=== PATIENT | female | born 1965 | race Caucasian/White ===

== ENCOUNTER 2024-04-03 09:52 | Emergency (ER) | payer OTHER, SELFPAY ==
--- NOTE | ~2024-04-03 | XR_ITS ---
EXAMINATION: XR chest 2V DATE: 04/03/2024 10:21 INDICATION: Cough. TECHNIQUE: Frontal and lateral views of the chest were obtained. COMPARISON: Chest 2 views 07/26/2011 FINDINGS: There are airspace opacities at the lung bases. A calcified right lung nodule is consistent with old granulomatous disease. No pleural effusion or pneumothorax. The heart size is normal. Surgi jennifer clips in the right upper quadrant are likely from cholecystectomy. There is mild chronic anterior wedging of multiple vertebral bodies. IMPRESSION: 1. Airspace opacities at the lung bases, likely atelectasis. Reviewed, dictated and finalized at location A.
[2024-04-03 10:05] VITALS: BP 99/66; PULSE 73; RESP 18; TEMP 36.2; O2SAT 94
--- NOTE | 2024-04-03 10:05 | ED.URI ---
HPI - URI/Sore Throat General Chief Complaint: Upper Respiratory Infection Stated Complaint: Cold symptoms Source: patient Mode of arrival: ambulatory Limitations: no limitations History of Present Illness HPI Narrative: 58-year-old female presented for complaint cough progressing over the past 3 days. Cough is nonproductive; endorses it is causing hoarse voice and loss of voice this morning, sob with exertion, headache and fatigue. Denies wheezing, chest pain, heart racing, n/v/d/f/c. Took benzonatate and cough syrup and used albuterol inhaler at night. Related Data Home Medications Medication Instructions Recorded Confirmed albuterol (refill) 90 mcg inhalation 05/22/23 03/22/24 mcg/actuation aerosol inhaler calcium carbonate (Antacid Ultra 400 mg PO DAILY 05/22/23 03/22/24 Strength) cholecalciferol (vitamin D3) 125 125 mcg PO DAILY 05/22/23 03/22/24 mcg (5,000 unit) capsule magnesium chloride 70 mg 70 mg PO DAILY 05/22/23 03/22/24 (magnesium chloride) tablet,delayed release mecobalamin (vitamin B12) 1,000 1,000 mcg PO DAILY 05/22/23 03/22/24 mcg chewable tablet benzonatate 200 mg capsule 200 mg PO BID 04/03/24 04/03/24 Allergies Allergy/AdvReac Type Severity Reaction Status Date / Time aspirin AdvReac Unknown Nausea and Verified 04/03/24 10:05 Vomiting CODIENE AdvReac Intermediate NAUSEA Uncoded 04/03/24 10:05 VOMITING Review of Systems Review of Systems: CONSTITUTIONAL: Denies body aches, fever, chills, or sweats. EYES: Denies visual changes, redness, or discharge. ENT: Denies rhinorrhea, sore throat, or otalgia. CARDIOVASCULAR: Denies chest pain, palpitations, or edema. RESPIRATORY: Reports cough, sob, denies wheezing. GASTROINTESTINAL: Denies abdominal pain, nausea, vomiting, or diarrhea. SKIN: Denies rash, itching, or wounds. MUSCULOSKELETAL: Denies back pain, joint pain, or myalgia. NEUROLOGIC: reports headache All systems reviewed & are unremarkable except as noted in HPI and below PMFSH Past Medical History Medical History Acquired hypothyroidism Allergies Arthritis Asthma Family history of hypercoagulable state GERD (gastroesophageal reflux disease) Morbid obesity due to excess calories Obesity (BMI 30.0-34.9) Osteoarthritis, hand, primary localized Osteoporosis Thyroid disorder Surgical History Surgical History S/P complete hysterectomy 07/2002 Status post right knee replacement Family History Family History Father Hypertension Mother Family history of hypothyroidism Other Diabetes mellitus Family history of cardiovascular disease Family history of malignant neoplasm Social History Social History Smoking status: Former smoker Second hand tobacco smoke exposure: No Alcohol intake: never Substance use: never Substance use type: does not use Lack of Transportation: No Lack of Food: Never True Current Housing: I Have Housing Concerned About Future Housing: No Difficulty Paying Gas/Electric Bills: No Difficulty Paying for Meds: No Currently Unemployed: No Education: Associate Degree Difficulty w/ Childcare or Family Care: No Living arrangements: with family Occupation/Education: occupation Gender identity (if verbalized by the patient): Female Agree to blood products: Yes Comments At time of signature, I have reviewed and agree with nursing past medical, surgical, social and family history unless otherwise noted. Please see nursing chart for further information. There is no relevant family history pertinent to the presenting complaint Exam Narrative: GENERAL: mildly ill-appearing, in no acute distress. EYES: EOMI. No redness or drainage. Conjunctivae normal. ENT: Mucous membranes
[2024-04-03 10:06] VITALS: BP 99/66; PULSE 73; RESP 18; TEMP 36.2; O2SAT 94
[2024-04-03 10:46] LABS: EDINFLUASCREEN Negative; EDINFLUBSCREEN Negative; EDSTREPNEGPOS1 Presumptive Negative
== END 2024-04-03 10:58 | disposition home or self-care (01) ==
PROVIDERS: Emergency Provider Nurse Practitioner Family; PCP Internal Medicine
DX: J40 Bronchitis, not specified as acute or chronic (principal); Z20.822 Contact with and (suspected) exposure to COVID-19; Z87.891 Personal history of nicotine dependence; E03.9 Hypothyroidism, unspecified; M19.90 Unspecified osteoarthritis, unspecified site; J45.909 Unspecified asthma, uncomplicated; K21.9 Gastro-esophageal reflux disease without esophagitis; E66.01 Morbid (severe) obesity due to excess calories; Z68.38 Body mass index [BMI] 38.0-38.9, adult; M81.0 Age-related osteoporosis without current pathological fracture; Z96.651 Presence of right artificial knee joint
CPT/HCPCS: 71046; 87081; 87426; 87804; 87880; 99213; G0463

== ENCOUNTER 2024-07-13 15:06 | Emergency (ER) | payer OTHER, SELFPAY ==
[2024-07-13 15:19] VITALS: BP 121/72; PULSE 72; RESP 16; TEMP 36.4; O2SAT 98
--- NOTE | 2024-07-13 15:26 | ED.UPPEXIN ---
HPI - Extremity Injury (Upper) General Chief Complaint: Extremity Injury, Upper Stated Complaint: LT Arm Pain Time Seen by Provider: 07/13/24 15:26 Source: patient and RN notes reviewed Mode of arrival: ambulatory Limitations: no limitations History of Present Illness HPI narrative: 58-year-old female presents with concern for. She reports about an hour prior to arrival she slipped on a rug and fell hitting the side of her head, she also reports left wrist pain. Patient takes Eliquis. She reports dizziness after she hit her head, she denies nausea. MD complaint: injury to: left and wrist Related Data Home Medications Medication Instructions Recorded Confirmed calcium carbonate (Antacid Ultra 400 mg PO DAILY 05/22/23 07/13/24 Strength) cholecalciferol (vitamin D3) 125 125 mcg PO DAILY 05/22/23 07/13/24 mcg (5,000 unit) capsule magnesium chloride 70 mg 70 mg PO DAILY 05/22/23 07/13/24 (magnesium chloride) tablet,delayed release mecobalamin (vitamin B12) 1,000 1,000 mcg PO DAILY 05/22/23 07/13/24 mcg chewable tablet apixaban 5 mg tablet (Eliquis) 5 mg PO BID 06/01/24 07/13/24 spironolactone 25 mg tablet 25 mg PO DAILY 06/01/24 07/13/24 Allergies Allergy/AdvReac Type Severity Reaction Status Date / Time aspirin AdvReac Unknown Nausea and Verified 06/01/24 14:09 Vomiting CODIENE AdvReac Intermediate NAUSEA Uncoded 06/01/24 14:09 VOMITING Review of Systems Review of Systems: CONSTITUTIONAL: Denies malaise, chills, sweats, or fever. SKIN: Denies rash or itching, open skin, laceration, abrasion, redness, warmth, swelling. MUSCULOSKELETAL: Reports left wrist pain NEUROLOGIC: Denies numbness, weakness. Reports head injury and dizziness All systems reviewed & are unremarkable except as noted in HPI and below PMFSH Past Medical History Medical History (Updated 07/13/24 @ 15:41 by Cathie Kimble NP) Acquired hypothyroidism Afib Allergies Arthritis Asthma Atrial fibrillation with rapid ventricular response Family history of hypercoagulable state GERD (gastroesophageal reflux disease) Morbid obesity due to excess calories Obesity (BMI 30.0-34.9) Osteoarthritis, hand, primary localized Osteoporosis Thyroid disorder Surgical History Surgical History S/P complete hysterectomy 07/2002 Status post right knee replacement Family History Family History Father Hypertension Mother Family history of hypothyroidism Other Diabetes mellitus Family history of cardiovascular disease Family history of malignant neoplasm Social History Social History Smoking status: Former smoker Second hand tobacco smoke exposure: No Alcohol intake: never Substance use: never Substance use type: does not use Lack of Transportation: No Lack of Food: Never True Current Housing: I Have Housing Concerned About Future Housing: No Difficulty Paying Gas/Electric Bills: No Difficulty Paying for Meds: No Currently Unemployed: No Education: Associate Degree Difficulty w/ Childcare or Family Care: No Living arrangements: with family Occupation/Education: occupation Gender identity (if verbalized by the patient): Female Agree to blood products: Yes Comments At time of signature, agree with nursing past medical, surgical, social and family history. There is no relevant family history pertinent to the presenting complaint Exam Narrative: GENERAL: Well-appearing, well-nourished, and in no acute distress. HEAD: Normocephalic hematoma noted to the left parietal area EYES: PERRLA, conjunctivae clear, no nystagmus, EOMI NECK: Supple. CHEST: Speaks in full sentences. No respiratory distress. HEART: Regular rate and rhythm. Normal and equal peripheral pulses. EXTREMITIES: No gross deformity noted to the left up
[2024-07-13 15:28] VITALS: BP 121/72; PULSE 72; RESP 16; TEMP 36.4; O2SAT 98
== END 2024-07-13 15:48 | disposition short-term general hospital (02) ==
PROVIDERS: Emergency Provider Nurse Practitioner; PCP Internal Medicine
DX: S09.90XA Unspecified injury of head, initial encounter (principal); W18.09XA Striking against other object with subsequent fall, initial encounter; E03.9 Hypothyroidism, unspecified; I48.91 Unspecified atrial fibrillation; M19.90 Unspecified osteoarthritis, unspecified site; J45.909 Unspecified asthma, uncomplicated; E66.01 Morbid (severe) obesity due to excess calories; Z68.38 Body mass index [BMI] 38.0-38.9, adult; M81.0 Age-related osteoporosis without current pathological fracture; Z96.651 Presence of right artificial knee joint; Z87.891 Personal history of nicotine dependence
CPT/HCPCS: 99212; A4565; G0463

== ENCOUNTER 2025-02-07 08:17 | Emergency (ER) | payer OTHER, SELFPAY ==
--- NOTE | ~2025-02-07 | XR_ITS ---
XR chest 2V Ordering provider: Felix Arteaga APRN History: 59 years Female with . cough/sob x 1 week . Comparison: April 03, 2024 FINDINGS: MEDIASTINUM: The cardiac silhouette is not enlarged. LUNGS: No effusions or pneumothorax. Minimal opacification the left lower lobe is seen which may whitley gracia early pneumonia. Follow-up advised. Calcified granuloma seen in the posterior sulcus of the righ t lung unchanged OTHER: No free air under the diaphragm. Degenerative changes of the spine. Kyphosis. IMPRESSION: Minimal opacification in the left lung base medially which may indicate early pneumonia. Follow-up ad vised. Reviewed, dictated and finalized at location A. IMPRESSION: Minimal opacification in the left lung base medially which may indicate early p neumonia. Follow-up advised.
--- NOTE | 2025-02-07 08:23 | ED.URI ---
HPI - URI/Sore Throat General Chief Complaint: Upper Respiratory Infection Stated Complaint: sob,sore throat Time Seen by Provider: 02/07/25 08:22 Source: patient Mode of arrival: ambulatory Limitations: no limitations History of Present Illness HPI Narrative: Mercedes kessler a 59-year-old female patient presenting to the clinic today with complaints of shortness of breath, sore throat, cough, headache, nasal/sinus congestion. She reports cough is nonproductive but she is blowing out some yellow nasal discharge. History of asthma. States that it hurts in her left mid back to take a deep breath and when she coughs. No known fever chills. MD elicited complaint: sore throat and nasal congestion Related Data Home Medications ?Medication ?Instructions ?Recorded ?Confirmed ?Last Taken ?Type calcium carbonate (Antacid Ultra 400 mg PO DAILY 05/22/23 02/07/25 Unknown History Strength) cholecalciferol (vitamin D3) 125 125 mcg PO DAILY 05/22/23 02/07/25 Unknown History mcg (5,000 unit) capsule magnesium chloride 70 mg 70 mg PO DAILY 05/22/23 02/07/25 Unknown History (magnesium chloride) tablet,delayed release mecobalamin (vitamin B12) 1,000 1,000 mcg PO DAILY 05/22/23 02/07/25 Unknown History mcg chewable tablet omeprazole 20 mg capsule,delayed 20 mg PO DAILY 10/26/24 02/07/25 Unknown History release Allergies Allergy/AdvReac Type Severity Reaction Status Date / Time aspirin AdvReac Intermediate Nausea and Verified 02/07/25 08:24 Vomiting codeine AdvReac Intermediate Nausea and Verified 02/07/25 08:24 Vomiting Review of Systems Review of Systems: Pertinent positives per HPI. Patient denies any fever, chills, rash, visual changes, dizziness, chest pain, palpitations, nausea, vomiting, diarrhea, constipation, abdominal pain, or any urinary issues. [facility] Past Medical History Medical History Chronic anticoagulation Elbow fracture, left Atrial fibrillation with rapid ventricular response Afib Family history of hypercoagulable state Morbid obesity due to excess calories Acquired hypothyroidism Osteoarthritis, hand, primary localized Obesity (BMI 30.0-34.9) Thyroid disorder Osteoporosis GERD (gastroesophageal reflux disease) Arthritis Asthma Allergies Surgical History Surgical History S/P complete hysterectomy 07/2002 Status post right knee replacement Family History Family History Father Hypertension Mother Family history of hypothyroidism Other Diabetes mellitus Family history of cardiovascular disease Family history of malignant neoplasm Social History Social History Smoking status: Former smoker Second hand tobacco smoke exposure: No Alcohol intake: never Substance use: never Substance use type: does not use Lack of Transportation: No Lack of Food: Never True Current Housing: I Have Housing Concerned About Future Housing: No Difficulty Paying Gas/Electric Bills: No Difficulty Paying for Meds: No Currently Unemployed: No Education: Associate Degree Difficulty w/ Childcare or Family Care: No Living arrangements: with family Occupation/Education: occupation Gender identity (if verbalized by the patient): Female Agree to blood products: Yes Comments At the time of my signature, I reviewed and agree with the nursing past medical, surgical, social, and family history. There is no relevant family history pertinent to the patient complaint. Exam Narrative: General: Well-developed, morbidly obese, in no apparent distress Head: Normocephalic, atraumatic Eyes: Pupils equally round and reactive to light bilaterally, EOM intact, sclera and conjunctive clear, no discharge, lids normal Ears: TMs intact and congested, ear canals clear, no drainage, grossly hearing normal. Nose: Nares patent, green nasal discharge, moderate inflammation, maxillary sinus tenderness. Mouth: Oral pharynx without lesions or masses, good dentition, MMM. Neck: Supple, trachea midline, no enlargement of anterior or posterior cervical nodes, no thyroid masses or goiter palpable. Cardio: Irregular rate and rhythm, s1 and s2 normal, no murmur appreciated. Resp: Lung sounds diminished in the bases with some expiratory rhonchi, no rales, wheezing or rubs Course Course Emergency Course: Portions of this record may have been created with voice recognition software. Level of Care: Express Care Visit Vital Signs Vital signs: Vital Signs Temperature 36.3 C L 02/07/25 08:29 Pulse Rate 84 02/07/25 08:29 Respiratory Rate 18 02/07/25 08:29 Blood Pressure 102/69 02/07/25 08:29 Pulse Oximetry 96 02/07/25 08:29 Oxygen Delivery Room Air 02/07/25 08:29 Temperature 36.3 C L 02/07/25 08:29 Pulse Rate 84 02/07/25 08:29 Respiratory Rate 18 02/07/25 08:29 Blood Pressure 102/69 02/07/25 08:29 Pulse Oximetry 96 02/07/25 08:29 Oxygen Delivery Room Air 02/07/25 08:29 Vital signs reviewed MDM - URI/Sore Throat MDM Narrative Medical decision making narrative: At the time of visit patient is resting comfortably on the exam table. Patient appears to be nontoxic. SpO2 96% on room air. Heart rate is 84 apical-irregularly irregular. Denies any chest pain. States it hurt her back to take a deep breath and when she is coughing. Feels as though her lungs are on fire. Labs: Strep test was negative. Diagnostics: Chest x-ray shows lower lobe developing pneumonia. Plan: I suspect patient has early developing pneumonia. Prescription for albuterol inhaler, Augmentin, and azithromycin was sent to the pharmacy. Supportive measures were discussed with the patient and they voiced understanding discharge instructions and agrees to treatment plan. Return precautions reviewed Differential Diagnosis Differential diagnosis: Likely upper respiratory infection, otitis media, sinusitis, viral infection, bronchitis, influenza, pharyngitis and other (COVID) Lab Data Labs: Lab Results 02/07/25 Range/Units 08:50 POC Grp A Strep Screen Negative (Negative) Imaging Data Radiologist's impression: ITS Impressions Chest X-Ray 02/07/25 08:48 IMPRESSION: Minimal opacification in the left lung base medially which may indicate early pneumonia. Follow-up advised. Discharge Plan Discharge Clinical Impression: Left lower lobe pneumonia Qualifiers: Pneumonia type: due to unspecified organism Qualified Code(s): J18.9 - Pneumonia, unspecified organism Sinusitis Qualifiers: Sinusitis location: maxillary Chronicity: acute Recurrence: non-recurrent Qualified Code(s): J01.00 - Acute maxillary sinusitis, unspecified Patient Disposition: Home Condition: Stable Instructions: Antibiotic Form, Sinusitis (ED), Pneumonia (ED) Additional Instructions: Strep test was negative in the clinic today. Chest x-ray shows likely early pneumonia in the left lower lobe Take prescription medications only as prescribed-Augmentin, and azithromycin, and albuterol inhaler Increase fluids and stay well hydrated Tylenol/motrin for pain/fever Flonase and OTC antihistamines as directed Vicks vapor rub to open sinuses Sinus rinses for congestion Cepacol spray, cough drops, throat lozenges, warm tea with honey/lemon, gargle salt water to soothe throat BRAT diet for diarrhea Clear liquids x 24 hours then advance as tolerated for nausea/vomiting Go to the ED if you develop a worsening in your condition- high fever not controlled by Tylenol or Motrin, dehydration, weakness, lethargy, shortness of breath, or chest pain. Follow up with your PCP in 3-5 days if symptoms persist. Patient Language: Icelandic Prescriptions: New amoxicillin-pot clavulanate 875-125 mg tablet 1 tablet PO Q12H 7 Days Qty: 14 0RF azithromycin 250 mg tablet See Rx Instructions .ROUTE .COMPLEX Qty: 6 0RF Rx Instructions: For 250 mg dose pack: take 500 mg today (day 1), then 250 mg for 4 days (days 2-5) albuterol sulfate 90 mcg/actuation HFA aerosol inhaler 2 puff inhalation Q4-6H PRN (Reason: shortness of breath or wheezing) 30 Days Qty: 8.5 0RF No Action magnesium chloride 70 mg tablet,delayed release (DR/EC) 70 mg PO DAILY calcium carbonate [Antacid Ultra Strength] 400 mg calcium (1,000 mg) tablet,chewable 400 mg PO DAILY mecobalamin (vitamin B12) 1,000 mcg tablet,chewable 1,000 mcg PO DAILY cholecalciferol (vitamin D3) 125 mcg (5,000 unit) capsule 125 mcg PO DAILY omeprazole 20 mg capsule,delayed release(DR/EC) 20 mg PO DAILY Eliquis 5 mg tablet 5 mg PO BID Qty: 180 1RF levothyroxine 125 mcg tablet See Rx Instructions .ROUTE .COMPLEX Qty: 90 1RF Dose Instruction: TAKE ONE TABLET BY MOUTH EVERY DAY Rx Instructions: TAKE ONE TABLET BY MOUTH EVERY DAY Follow-up/Referrals: Mukesh Nayak DO [Primary Care Provider] - Time of Disposition: 08:56 Quality NIHSS Nursing Documentation ED NIHSS nursing documentation: reviewed/agree
--- OUTSIDE RECORDS SUMMARY | 2025-02-07 08:23 | XMS_ITS | Clinical Summary ---
Author Organization [facility] Address [address] [place] [id number] Care Team Providers Care Controls Technician Name Role Phone Unavailable Primary Care Provider Unavailabl e Social History Tobacco Use Types Packs/Day Years Used Date Smoking Tobacco: Never Assessed Comments Unknown Sex and Gender Information Value Date Recorded Sex Assigned at Not on file Legal Sex Female 8:54 PM CDT Gender Identity Not on file Sexual Orientation Not on file Last Filed Vital Signs Vital Sign Reading Time Taken Comments Blood Pressure 120/68 01/13/2015 9:01 AM CDT Pulse - - Temperature - - Respiratory Rate - - Oxygen Saturation - - Inhaled Oxygen Concentration - - Weight 112.5 kg (248 lb) 01/13/2015 9:01 AM CDT Height 172.7 cm (5' 8 ) 01/13/2015 9:01 AM CDT Body Mass Index 37.71 01/13/2015 9:01 AM CDT Plan of Treatment Health Maintenance Due Date Last Done Comments Cervical Cancer Screening Pa p Smear (Age 30 to 64) Every 3 Years 1963 Colorectal Cancer Screening Colonoscopy (10 Years) 1963 Annual Physical 12/08/1966 Hepatitis C 12/08/1981 DTaP, Tdap and Td Vaccines ( 1 - Tdap) 12/08/1982 Cervical Cancer Screening Pa p with HPV Testing (Age 30 to 64) Every 5 Years 12/08/1993 Cervical Cancer Screening with HPV 12/08/1993 Mammogram Screening 2003 Pneumococcal Vaccine: 50+ Ye ars (1 of 1 - PCV) 12/08/2013 Zoster Vaccines (1 of 2) 12/08/2013 COVID-19 Vaccine ( - 2023-2 5 season) 2024 RSV Immunization or 60+ Years (1 - 1-dose 75+ series) 12/08/2038 Meningococcal B Vaccine Aged Out No l onger eligible based on patient's age to complete this topic Meningococcal Vaccine Aged Out No pop jeanie eligible based on patient's age to complete this topic RSV Immunizations Under 20 Months Aged Out No longer eligible based on patient's age to complete this topic
--- OUTSIDE RECORDS SUMMARY | 2025-02-07 08:23 | XMS_ITS | Encounter Summary ---
Author Organization [facility] Care Team Providers Care Health Workers Name Role Phone Andra Castro MD Primary Care Provider + Mariana Hill MD Primary Care Provi kurt Andra Castro MD Primary Care Provider + Andra Castro MD Primary Care Provider + Charly Faith MD Unavailable [phone] Mukesh Nayak DO Primary Care Provider [phone] Encounter Details Date Type Department Care Team (Latest Contact Info) Description 05/01/2018 Orders Only [facility] ProviderChary MD [address] [place], [place] [id number] Social History Tobacco Use Types Packs/Day Years Used Date Smoking Tobacco: Never Smokeless Tobacco: Never Alcohol Use Standard Drinks/Week Comments No 0 (1 standard drink = 0.6 oz pur e alcohol) Comments Unknown Sex and Gender Information Value Date Recorded Sex Assigned at Not on file 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 us Historical Provider [facility] HOWIE ORTIZ Final Result documented in this encounter Visit Diagnoses Not on filedocumented in this encounter Additional Health Concerns Infection Onset Date Last Indicated Resolved Time COVID: Suspected 12/16/2021 12/16/2021 12/16/2021 11:00 AM CDT COVID: Suspected 12/16/2021 12/16/2021 12/17/2021 3:06 AM CDT COVID: Suspected 12/16/2021 12/16/2021 12/17/2021 7:23 PM CDT COVID: Suspected 06/12/2022 06/12/2022 06/12/2022 11:10 AM CDT COVID: Suspected 07/27/2023 07/27/2023 07/27/2023 12:30 PM CDT COVID: Suspected 05/25/2024 05/25/2024 05/25/2024 5:04 AM CDT documented as of this encounter Care Teams Health Workers Relationship Specialty Start Date End Date Andra Castro MD [address] [place] [address] PCP - General 04/22/11 12/27/18 Mariana Hill MD [facility] [address] [place] [id number] PCP - General 12/28/18 12/29/18 Andra Castro MD [address] [place] [address] PCP - General 12/30/18 01/03/19 Andra Castro MD [address] [place] [address] PCP - General 01/04/19 01/12/19 Mukesh Nayak DO [address] [facility] [address] [place] [address] PCP - General Internal Medicine 06/27/23 Charly Faith MD [address] [facility] [address] [place] [address] Consulting Physician Orthopedic Surgery 05/08/20 documented as of this encounter
--- OUTSIDE RECORDS SUMMARY | 2025-02-07 08:23 | XMS_ITS | Clinical Summary ---
Author Organization [address] Address [address] [place] [address] Care Team Providers Care Assistant Professor Of History Name Role Phone Charly Faith MD Unavailable [phone] Mukesh Nayak DO Primary Care Provider [phone] Allergies Active Allergy Reactions Criticality Noted Date Comments Aspirin Stomach upset Low 01/14/2019 nausea/vomiting Stomach/GI Upset Bansal Pepper Extract Angioedema High 05/25/2024 Codeine Nausea only,Stomach upset Low 01/14/2019 Finger tingles Stomach/GI Upset Medications acetaminophen (TYLENOL ORAL) Take 1,000 mg by mouth every 6 (six) hours as needed Active calcium citrate 250 mg calcium tablet tablet Take 1 tablet (250 mg total) by mouth 2 (two) times a day Active cyanocobalamin, vitamin B-12, 5,000 mcg tablet, sublingual Place 1 tablet under the tongue daily 1 drop daily Active cholecalciferol (VITAMIN D-3) 5,000 unit tablet Take 1 tablet (5,000 Units total) by mouth daily Active syringe-needle,karyn hanson 3 mL 25 gauge x 1 syringeIndicatio ns:B12 deficiency 1 Syringe every 30 (thirty) days 3 each 2 Active Additional Information Patient not taking.Reported on 05/25/2024 albuterol HFA (ProAir HFA) 90 mcg/actuation inhalerIndicatio ns:Wheezing Inhale 2 puffs every 4 (four) hours as needed for wheezing or shortness of breath 8.5 g 3 Active levothyroxine (SYNTHROID) 125 mcg tablet Take 1 tablet (125 mcg total) by mouth slip laster before breakfast 4 Active lansoprazole (PREVACID) 30 mg capsule Take 1 capsule (30 mg total) by mouth daily as needed Active apixaban (ELIQUIS) 5 mg tabletIndication s:atrial fibrillation Take 1 tablet (5 mg total) by mouth every 12 (twelve) hours 60 tablet 2 4 Active dapagliflozin propanediol (Farxiga) 5 mg tabletIndication s:Heart Failure Take 2 tablets (10 mg total) by mouth daily 60 tablet 2 4 Active spironolactone (ALDACTONE) 25 mg tablet Take 1 tablet (25 mg total) by mouth daily 30 tablet 2 4 05/27/20 25 Active amiodarone (PACERONE) 400 mg tablet Take 1 tablet (400 mg total) by mouth 2 (two) times a day for 14 days 28 tablet 4 Active amiodarone (PACERONE) 200 mg tablet Take 1 tablet (200 mg total) by mouth 2 (two) times a day 120 tablet 4 Active amiodarone (PACERONE) 200 mg tablet Take 1 tablet (200 mg total) by mouth daily 30 tablet 4 Active HYDROcodone-acet aminophen (NORCO) 5-325 mg per tabletIndication s:Pain Take 1 tablet by mouth every 6 (six) hours as needed for pain 8 tablet 4 Active Active Problems Problem Noted Date Diagnosed Date Atrial fibrillation with rapid ventricular respo nse 05/25/2024 Assessment & Plan (08/31/2024 11:55 AM [employer]): Chronic, stable. Single episode of rapid AF. No recurrence. Recommend observation OFF AADs. If recurrent, AF ablation should be considered. Also encouraged repeat sleep study and treatment of VITO if present. [id number] = 1(female sex). Long-term anticoagulation likely not indicated. Will reevaluate at next visit. --Continue apixaban 5 mg BID for now. Anticipate stopping next visit. --Sleep study as arranged --Cardiology referral for management of HFpEF --F/u 6 months to reevaluate AF burden Obstructive sleep apnea 03/11/2024 Assessment & Plan (03/11/2024 1:56 PM CDT): Past history of severe obstructive sleep apnea treated with CPAP. Gastric bypass in 2008. Lost over 100 lb but has gained some of her weight back. Interested in repeat polysomnography. Currently denies snoring, apneas, sleep attacks. No other signs or symptoms to suggest narcolepsy, restless leg syndrome, REM behavior disorder, parasomnia, movement disorder, circadian rhythm abnormality etcetera. Type 3 home sleep study seems reasonable. Body mass index likely would prevent treatment with hypoglossal nerve stimulation. Discussed other treatment options including surgery, mandibular advancement device. Supporter effort at the weight loss. Has gained back some of her weight following gastric bypass. A 10% reduction can lower the apnea-hypopnea index by 25%. Reviewed the relationship between sleep disorder breathing and cardiovascular health. Pernicious anemia 05/16/2022 Assessment & Plan (05/16/2022 2:25 PM CDT): Chronic Case reviewed with her director radio Will have her start vitamin B12 injections Will recheck in May Vitamin D deficiency 05/16/2022 Assessment & Plan (05/16/2022 1:14 PM CDT): Chronic, now on replacement Will recheck in May Call for questions or concerns OA (osteoarthritis) 04/20/2021 Assessment & Plan (04/20/2021 12:26 PM CDT): Previously following with Rheumatology, encouraged to follow with orthopedics Continue supportive care Call for questions or concerns Osteoarthritis of right knee 05/08/2020 Assessment & Plan (04/20/2021 12:26 PM CDT): Continue to follow with orthopedic Adjustment disorder with mixed anxiety and depre ssed mood 12/03/2019 Overview (01/07/2020): Patient reiterated no suicidal thoughts at this time; contact 911 and go to the ER if becomes suicidal Will increase cymbalta to 30 mg daily Continue supportive care for her mood If mood worsens or changes, please contact the office Anything emergent, to the er Assessment & Plan (04/20/2021 9:49 AM CDT): She is off medication We discussed restarting something- she does want to hold off Think about a therapist Work on healthy changes for her mood Follow up in the next couple months, but sooner if her mood worsens Any dangerous thoughts to the er Assessment & Plan (01/07/2020 11:49 AM CDT): Patient reiterated no suicidal thoughts at this time; contact 911 and go to the ER if becomes suicidal Will increase cymbalta to 30 mg daily Continue supportive care for her mood If mood worsens or changes, please contact the office Anything emergent, to the er Well adult exam 09/10/2019 Overview (04/20/2021): Encouraged a healthy diet, and regular physical activity to her level Wear sun screen, seat belts No texting/drinking and driving Health Maintenance: Last PAP: s/p hysterectomy for non-cancerous reasons Last mammogram: ordered Last colonoscopy: 06/2016-due this year Last Tdap: check records Last pneumonia/Prevnar: @63 Last Shingrix: encouraged Last Flu: encouraged Last COVID- up to date Assessment & Plan (04/20/2021 9:40 AM CDT): Encouraged a healthy diet, and regular physical activity to her level Wear sun screen, seat belts No texting/drinking and driving Health Maintenance: Last PAP: s/p hysterectomy for non-cancerous reasons Last mammogram: ordered Last colonoscopy: 06/2016-due this year Last Tdap: check records Last pneumonia/Prevnar: @63 Last Shingrix: encouraged Last Flu: encouraged Last COVID- up to date Assessment & Plan (09/10/2019 10:20 AM [employer]): Work on healthy low carb diet Healthy activity for 30 minutes daily Wear sun screen, seat belts No texting/drinking and driving Health Maintenance: Last PAP: NA Last mammogram: ordered Last DEXA: NA Last colonoscopy: 06/2016 Last Tdap: encouraged Last pneumonia/Prevnar: encouraged Last Shingrix: encouraged Last Flu: declined : Asthma 09/10/2019 Assessment & Plan (04/20/2021 9:44 AM CDT): Asymptomatic Continue to monitor her symptoms Class 3 severe obesity due t o excess calories without serious comorbidity with body mass index (BMI) of 40.0 to 44.9 in adult 07/26/2019 Assessment & Plan (03/21/2023 11:49 AM CDT): BMI Follow-up includes: continue working on healthy changes . Assessment & Plan (01/22/2023 10:24 AM CDT): BMI Follow-up includes: nutrition counseling. Assessment & Plan (04/20/2021 9:45 AM CDT): BMI Follow-up includes: nutrition counseling. Assessment & Plan (09/10/2019 10:25 AM [employer]): BMI Follow-up includes: nutrition counseling. Assessment & Plan (07/26/2019 11:11 AM CDT): BMI Follow-up includes: nutrition counseling. History of gastric bypass 07/10/2018 Esophageal dysphagia 07/10/2018 Assessment & Plan (04/20/2021 12:25 PM CDT): Stable Continue current regimen Continue to follow with GI Assessment & Plan (11/19/2019 10:13 AM [employer]): Work up under way Continue to follow with GI Call for questions or concerns Acquired hypothyroidism 04/10/2018 Assessment & Plan (05/16/2022 1:58 PM CDT): Chronic, stable Spoke to patient's director radio Continue current regimen Will place referral to endocrine at [facility] Labs ordered Assessment & Plan (04/20/2021 9:42 AM CDT): Labs ordered Assessment & Plan (12/03/2019 12:03 PM [employer]): Thyroid peroxidase antibody slightly elevated, otherwise normal Continue current regimen for now Consider recheck in 6 months Assessment & Plan (11/19/2019 10:21 AM [employer]): TSH normal Further labs ordered Abnormal result of cardiovascular function study 02/12/2014 Overview (01/02/2017): Abnormal cardiovascular function study Hypotension 02/12/2014 Overview (01/03/2017): Hypotension Pseudotumor cerebri syndrome 09/29/2003 Assessment & Plan (04/20/2021 12:28 PM CDT): We discussed the issue, consider referral to Neurology for any concerns or follow-up Will review at next visit as well Osteoarthritis of left knee Assessment & Plan (04/20/2021 12:26 PM CDT): Continue to follow with orthopedics GERD (gastroesophageal reflux disease) Assessment & Plan (04/20/2021 12:26 PM CDT): Stable Continue current regimen Call for questions or concerns Assessment & Plan (11/19/2019 10:13 AM [employer]): Continue to follow with GI Continue current regimen for now Call for questions or concerns Resolved Problems Problem Noted Date Diagnosed Date Resolved Date Pain, abdominal, RLQ 12/30/2019 021 Assessment & Plan (12/30/2019 1:49 PM CDT): 06/[address] scan Last food at 0930 Further guidance once we have the results Call for questions or concerns Abnormal CBC 11/19/2019 04/20/2021 Assessment & Plan (12/03/2019 12:03 PM [employer]): May be related to her previous gastric bypass We discussed talking to work bariatric surgeon, but he is no longer in practice I have asked her to touch base with her die reamer who is actually seen the procedure she had done, and to help guide us with what supplement she should be taking Recheck in 3-6 months Acute non-recurrent maxillary sinusitis 07/26/2019 09/10/2019 Assessment & Plan (07/26/2019 11:10 AM CDT): zithromax Tylenol/ibuprofen as needed Increase fluids, rest and handwashing Warm saltwater gargles Hot water/hot tea with honey Saline rinses to nose at least twice daily No sharing cups or utensils Cool mist humidifier May use vicks vaporub on chest and feet as needed to help with cough Please call if symptoms change or worsen, to the ER for anything emergent Stress 07/26/2019 04/20/2021 Assessment & Plan (07/26/2019 11:34 AM CDT): Discussed using a support group Discussed reaching out to [facility] about IOP for assistance Discussed FMLA if she needs it Call for questions or concerns Primary osteoarthritis of left knee 11/17/2017 04/20/2021 Encounters Date Type Department Care Team Description 01/26/2025 7:20 AM CDT Lab [facility] [address] [place] [id number] 01/21/2025 2:15 PM CDT - 01/21/2025 11:59 PM CDT Hospital Encounter [facility] [address] [facility] [address] [place] [phone] Screening mammogram, encounter for Discharge Disposition: Discharge to home or self care 01/21/2025 6:55 AM CDT Lab [facility] [address] [place] [id number] from Last 3 Months Immunizations Immunization Administration Dates Next Due Influenza, Unspecified 06/29/2022(Deferr ed: Patient Refused),06/29/2022(Deferred: Patient decision),06/29/2021(Deferred: Patient decision),06/29/2021(Deferred: Patient Refused),06/29/2020(Deferred: Patient Refused),06/29/2019(Deferred: Patient Refused),06/29/2018(Deferred: Patient Refused) Pfizer SARS-CoV-2 Monovalent Vaccination (12+ Yrs) PURPLE 01/26/2021,01/05/2021 Tdap 03/21/2023 Surgical History Surgery Date Site/Laterality Comments HYSTERECTOMY 07/30/2002 - 08/28/2002 endometriosis LAPAROSCOPIC ENDOMETRIOSIS FULGURATION 09/29/1985 - 09/28/1986 GASTRIC BYPASS 06/29/2009 - 07/29/2009 ADENOIDECTOMY 09/29/1976 - 09/28/1977 LAPAROSCOPIC ENDOMETRIOSIS FULGURATION 09/29/1986 - 09/28/1987 LAPAROSCOPIC ENDOMETRIOSIS FULGURATION 09/29/1989 - 09/28/1990 LAPAROSCOPIC ENDOMETRIOSIS FULGURATION 09/29/1991 - 09/28/1992 LAPAROSCOPIC ENDOMETRIOSIS FULGURATION 09/29/1994 - 09/28/1995 LAPAROSCOPIC ENDOMETRIOSIS FULGURATION 09/29/1995 - 09/28/1996 LAPAROSCOPIC ENDOMETRIOSIS FULGURATION 09/29/1998 - 09/28/1999 LAPAROSCOPIC ENDOMETRIOSIS FULGURATION 09/29/2000 - 09/28/2001 CHOLECYSTECTOMY 09/29/1997 - 09/28/1998 BREAST BIOPSY Right Benign KNEE SURGERY TOTAL KNEE ARTHROPLASTY 01/04/2019 Left JOINT REPLACEMENT 2017 & 2019 BARIATRIC SURGERY 06/2009 Medical History Medical History Date Comments Asthma Hiatal hernia Osteoarthritis of left knee Pseudotumor cerebri syndrome 2003 GERD (gastroesophageal reflu x disease) Schatzki's ring dilated in 07/16 History of left knee replacement January 04, 2019 Morbid obesity (HCC) Gait instability Acquired hypothyroidism 04/10/2018 Adjustment disorder with mix ed anxiety and depressed mood 12/03/2019 Patient reiterated no suici ger thoughts at this time; contact 911 and go to the ER if becomes suicidal Will increase cymbalta to 30 mg daily Continue supportive care for her mood If mood worsens or changes, please contact the office Anything emergent, to the er Anesthesia Hx PONV and nicole yed emergence. Total knee replacement 12/2018, postop RN notes periods of apnea. Pt with hx VITO 2002 but s/p gastric bypass 2008 and sx resolved, lost 150lbs and gained 30back. Denies family hx of anesthesia complications. VITO (obstructive sleep apnea) No t on CPAP currently. Dx 2002 s/p gastric bypass 2008, lost 150lbs, has gained 30lbs back. Apnea episodes noticed in post recovery unit from total knee replacement 12/2018 Anemia 2021 Atrial fibrillation with RVR (HCC) 05/25/2024 Family History Medical History Relation Name Comments Arthritis Brother 1 Darell Walter Arthritis Brother 2 Twin brother ESKD Requiring Dialysis Father Romero Horner ied from Covid-19 Hypertension Father Romero Watson traumatic brain injury Father Romero Watson Breast cancer Maternal Grandmother Hanna Murray 70s Clotting disorder Maternal Grandmother Hanna Murray Arthritis Mother Carole Watson Colon cancer Mother Carole Watson Miscarriages / Stillbirths Mother Carole Watosn Breast cancer Mother's Sister 1 Melinda Dejesus 40/50s Miscarriages / Stillbirths Mother's Sister 1 Melinda campos Breast cancer Mother's Sister 2 40/50s Alzheimer's disease Paternal Grandfather Ketan kessler Colon cancer Paternal Grandmother 40s Arthritis Sister Aubree Marks Blood Clot Sister Aubree Marks x 2 Clotting disorder Sister Aubree Marks on bloo d thinner Mental illness Son Severiano Franco Bleeding Disorder Neg Hx Cancer Neg Hx Diabetes Neg Hx Heart disease Neg Hx Relation Name Status Comments Brother 1 Darell Watson Brother 2 Twin brother Father Romero Watson Maternal Grandmother Hanna Murray Mother Carole Watson Alive Mother's Sister 1 Melinda Dejesus Mother's Sister 2 Paternal Grandfather Ketan Watson Paternal Grandmother Sister Aubree Marks Alive Son Severiano Franco Social History Tobacco Use Types Packs/Day Years Used Date Smoking Tobacco: Never Smokeless Tobacco: Never Tobacco Cessation:Counseling Given: Not Answered Alcohol Use Standard Drinks/Week Comments No 0 (1 standard drink = 0.6 oz pur e alcohol) [facility] Utilities Answer Date Recorded In the past 12 months has e electric, gas, oil, or water company threatened to shut off services in your home? No 05/26/2024 Social Connection and Isolat ion Panel [NHANES] Answer Date Recorded In a typical week, how many times do you talk on the phone with family, friends, or neighbors? More than three times a week 05/26/2024 How often do you get togethe r with friends or relatives? Twice a week 05/26/2024 How often do you attend chur ch or jainism services? Never 05/26/2024 Do you belong to any clubs o r organizations such as episcopal groups, unions, fraternal or athletic groups, or school groups? No 05/26/2024 How often do you attend meet ings of the clubs or organizations you belong to? Never 05/26/2024 Are you , , di vorced, , never , or living with a partner? 05/26/2024 AUDIT-C Answer Date Recorded Q1: How often do you have a drink containing alcohol? Never 05/25/2024 Q2: How many drinks containi ng alcohol do you have on a typical day when you are drinking? Patient does not drink Q3: How often do you have si x or more drinks on one occasion? Never 05/25/2024 Overall Financial Resource Strain (CARDIA) Answe r Date Recorded How hard is it for you to pa y for the very basics like food, housing, medical care, and heating? Not hard at all 05/26/2024 PHQ-2 Answer Date Recorded PHQ-2 Total Score (If total score is 3 or more points, staff should administer the PHQ-9) 0 03/21/2023 Hunger Vital Sign Answer Date Recorded Within the past 12 months, y ou worried that your food would run out before you got the money to buy more. Never true 05/26/20 24 Within the past 12 months, t he food you bought just didn't last and you didn't have money to get more. Never true 05/26/2024 PRAPARE - Transportation Answer Date Re corded In the past 12 months, has l ack of transportation kept you from medical appointments or from getting medications? No 04/30 In the past 12 months, has l ack of transportation kept you from meetings, work, or from getting things needed for daily living? No 05/26/2024 Housing Stability Vital Sign Answer Kang e Recorded In the last 12 months, was t here a time when you were not able to pay the mortgage or rent on time? No 05/26/2024 In the past 12 months, how m any times have you moved where you were living? 0 05/26/2024 At any time in the past 12 m [facility], were you homeless or living in a detention (including now)? No 05/26/2024 Personal Safety Answer Date Recorded Have you ever been in or are you currently in a harmful physical or emotional relationship or is someone making you feel afraid or unsafe? Denies 07/14/2024 Comments No Sex and Gender Information Value Date Recorded Sex Assigned at Not on file Legal Sex Female 1:54 AM [employer] Gender Identity Female 03/08/2021 7:08 AM CDT Sexual Orientation Straight 03/22/2020 1: 05 PM CDT Obstetrics History Para Term AB IAB SAB Ectopic Multiple Livin g Live Births 3 0 0 3 3 Date Outcome GA Total Labor Labor/2nd/3rd Weight Sex Type Anes PTL Adilia A1 A5 Name Clin SAB SAB SAB Last Filed Vital Signs Vital Sign Reading Time Taken Comments Blood Pressure 129/82 08/31/2024 11:38 AM [employer] Pulse 82 08/31/2024 11:38 AM [employer] Temperature 36.9 C (98.5 F) 07/14/2024 7:28 PM CDT Respiratory Rate 16 07/14/2024 7:28 PM CDT Oxygen Saturation 98% 08/31/2024 11: 38 AM [employer] Inhaled Oxygen Concentration - - Weight 120.2 kg (264 lb 15.9 oz) 01/21/2025 2:42 PM CDT Height 170.2 cm (5' 7 ) 01/21/2025 2:42 PM CDT Body Mass Index 41.5 01/21/2025 2:42 PM CDT Plan of Treatment Health Maintenance Due Date Last Done Comments Hepatitis B Screening 12/08/1981 Pneumococcal vaccine <65 (1 of 2 - PCV) 12/08/1982 Zoster Vaccine (1 of 2) 12/08/2013 Regular Well Visit/Exam 18-64 04/20/2022, 04/20/2021, 09/10/2019 Depression Screening 03/21/2024 03/21/2023, 01/22/2023, 05/16/2022, Additional history exists Covid-19 Vaccine (3 - 2023-2 5 season) 2024 01/26/2021, 01/05/2021 Influenza Vaccine (Season Ended) 2025 Breast Cancer Screening-Mammogram 01/21/2026 01/21/2025, 10/31/2023, 09/13/2022, Additional history exists DTaP/Tdap/Td Vaccine (2 - Td or Tdap) 03/21/2033 03/21/2023 Colon Cancer Screening-Colonoscopy 05/14/2033 05/14/2023, 07/01/2016 Hepatitis C Screening Completed 09/17/2019 Colon Cancer Screening-CT Colonography Discontinued 05/14/2023, 07/01/2016 Colon Cancer Screening-DNA Stool Discontinued 05/14/20 23, 07/01/2016 Colon Cancer Screening-FIT Discontinued 05/14/2023, Colon Cancer Screening-Sigmoidoscopy Discontinued 05/14/2023, 07/01/2016 Medical Devices Implanted Type Area Summons Server Device Identifier Shelf Expiration Date Model / Serial / Lot [employer] [id number] Vanguard 62.5mm Cruciate Retaining Primary Knee Left Component - [id number] Implanted:Qty: 1 on 01/04/2019 by Charly Faith MD at [facility] [employer] [id number] 10/05/2028 [id number] / / [id number] [employer] [id number] Ascent Maxim 71mm 1 Piece Cruciate Fin Knee Tray Tibial Interlok - [id number] Implanted:Qty: 1 on 01/04/2019 by Charly Faith MD at [facility] [employer] 10/12/2028 [id number] / / [id number] [id number] Simplex P Radiopaque; Full Dose Cement Bone - [id number] Implanted:Qty: 1 on 01/04/2019 by Charly Faith MD at [facility] [employer] 02/26/2021 [id number] / / [id number] [employer] [id number] Vanguard [id number] Cruciate Retaining Knee Bearing Tibial E1 - [id number] Implanted:Qty: 1 on 01/04/2019 by Charly Faith MD at [facility] [employer] [id number] 10/29/2023 [id number] / / [id number] [employer] 6191-1-010 Simplex P Radiopaque Full Dose Cement Bone Sterile - Sna - [id number] Implanted:Qty: 1 on 05/08/2020 by Charly Faith MD at [facility] Right: Knee [employer] 09/28/2021 [id number] / NA / [id number] [employer] [id number] Ascent Maxim 71mm 1 Piece Cruciate Fin Knee Tray Tibial Interlok - Sna - [id number] Implanted:Qty: 1 on 05/08/2020 by Charly Faith MD at [facility] Right: Knee [employer] 03/27/2030 [id number] / NA / [id number] [employer] [id number] Vanguard 65mm Cruciate Retaining Primary Knee Right Component - Sna - [id number] Implanted:Qty: 1 on 05/08/2020 by Charly Faith MD at [facility] Right: Knee [employer] [id number] 09/23/2029 [id number] / NA / [id number] Vanguard Arcom Knee Cruciate Retain Direct - Sna - [id number] Implanted:Qty: 1 on 05/08/2020 by Charly Faith MD at [facility] Right: Knee [employer] [id number] 05/29/2024 [id number] / [id number] / [id number] Procedures Procedure Name Priority Date/Time Associated Diagnosis Comments KAITLIN QUALITATIVE WITH REFLEX TO KAITLIN QUANTITATIVE Routine 01/26/2025 7:36 AM CDT FERRITIN Routine 01/26/2025 7:36 AM CDT LIPID PANEL Routine 01/26/2025 7:36 AM CDT SCREENING MAMMOGRAM BILATERAL W PADDY Schedule Routine, Read Routine (OP Routine) 01/21/2025 2:21 PM CDT Screening mammogram, encounter for ERYTHROCYTE SEDIMENTATION RATE Routine 01/21/2025 7:02 AM CDT COLONOSCOPY 05/14/2023 1:07 PM CDT HEPATITIS C ANTIBODY Routine 09/17/2019 7:43 AM [employer] Well adult exam Need for hepatitis C screening test from Last 3 Months or Most Recently Relevant to Health Maintenance Results * (ABNORMAL) KAITLIN ab ql w/rflx to KAITLIN qn (01/26/2025 7:36 AM CDT) KAITLIN Positive 1:80 Comment: Interpretive Data Normal range for KAITLIN Qualitative Antibody = Negative. 1. KAITLIN is performed using indirect immunofluorescence against HEp-2 cells 2. KAITLIN titers are performed on all positive qualitative results. 3. A significantly positive KAITLIN result is defined as a positive nuclear fluorescence at a titer of 1:80 or greater. 4. 15% of normal people above age 65 have significantly positive KAITLIN results. 5% or less of normal people age 65 or under have significantly positive KAITLIN results. Current interpretive data was last revised on 2020. Testing performed by: [facility], [address] [place] [address]., [id number] KAITLIN, quant 1:80 titer NÉSTOR MCCORMACK Comment:Testing performed by : [facility], [address] [place] [address]., [id number] KAITLIN, interp Speckled(A) NÉSTOR MCCORMACK Comment:Testing performed by : [facility], [address] [place] [address]., [id number] Blood 01/26/2025 7:36 AM CDT 01/26/2025 11:14 AM CDT Mukesh Nayak DO LAB BLOOD ORDERABLES Final Result Performing Organization Address [facility] [facility] Co de Phone Number [address] [place] [address] * Ferritin (01/26/2025 7:36 AM CDT) Pathologist [facility] Ferritin 40 15 - 150 ng/mL Comment:Testing performed by : [facility], [address] [place] [address]., [id number] Blood 01/26/2025 7:36 AM CDT 01/26/2025 8:11 AM CDT Mukesh Nayak DO LAB BLOOD ORDERABLES Final Result Performing Organization Address City/[facility] Co de Phone Number [address] [place] [address] * Lipid panel (01/26/2025 7:36 AM CDT) Cholesterol 171 30 - 199 mg/dL Comment: Interpretive Data Ages < or = 19 years Acceptable: <170 mg/dL Borderline high: 170-199 mg/dL High: >or= 200 mg/dL Ages > or = 20 years Desirable: <200 mg/dL Borderline high: 200-239 mg/dL High: >or= 240 mg/dL Literature References: 1. Expert Panel on Integrated Guidelines for Cardiovascular Health and Risk Reduction in Children and Adolescents. Pediatrics 2011;128:S213 2. NCEP Expert Panel. Circulation 2004;110:227 Current Interpretive Data was last revised on 2018. Testing performed by: [address] [address] Triglycerides 82 <=149 mg/dL [facility] Comment: Interpretive Data Ages < or = 9 years Acceptable: <75 mg/dL Borderline high: 75-99 mg/dL High: >or= 100 mg/dL Ages 10 to 20 years Acceptable: <90 mg/dL Borderline high: 90-129 mg/dL High: >or= 130 mg/dL Ages > or = 20 years Desirable: <150 mg/dL Borderline high: 150-199 mg/dL High: 200-499 mg/dL Very high: >or= 499 mg/dL Literature References: 1. Expert Panel on Integrated Guidelines for Cardiovascular Health and Risk Reduction in Children and Adolescents. Pediatrics 2011;128:S213 2. NCEP Expert Panel. Circulation 2004;110:227 Current Interpretive Data was last revised on 2018. Testing performed by: [address] [address] HDL 55 >=40 mg/dL [facility] Comment: Interpretive Data Ages < or = 19 years Acceptable: >45 mg/dL Borderline low: 40-45 mg/dL Low: <40 mg/dL Ages > or = 20 years Desirable: >or= 60 mg/dL Low: <40 mg/dL Literature References: 1. Expert Panel on Integrated Guidelines for Cardiovascular Health and Risk Reduction in Children and Adolescents. Pediatrics 2011;128:S213 2. NCEP Expert Panel. Circulation 2004;110:227 Current Interpretive Data was last revised on 2018. Testing performed by: [address] [address] LDL, calculated 101 <=129 mg/dL [facility] MCCORMACK Comment: Interpretive Data Ages < or = 19 years Acceptable: <110 mg/dL Borderline high: 110-129 mg/dL High: >or= 130 mg/dL Ages > or = 20 years Optimal: <100 mg/dL Near optimal: 100-129 mg/dL Borderline high: 130-159 mg/dL High: >160 mg/dL Calculated using the Pablo LDL-C estimating equation. This equation was implemented on 2024. Prior to this date LDL-C was estimated using the Friedewald equation. Literature References: 1. Expert Panel on Integrated Guidelines for Cardiovascular Health and Risk Reduction in Children and Adolescents. Pediatrics 2011;128:S213 2. NCEP Expert Panel. Circulation 2004;110:227 3. Pablo Pappas et al. LEIDA Cardiol. 2019January 27;5(5):540-548. doi: 10.1001/jamacardio.2020.0013 Current Interpretive Data was last revised on 2024. Testing performed by: [address] [address] Non-HDL Cholesterol 116 mg/dL [facility] MCCORMACK Comment: Interpretive Data Ages < or = 19 years Acceptable: <120 mg/dL Borderline high: 120-144 mg/dL High: >145 mg/dL Ages > or = 20 years When triglycerides are >200 mg/dL, Non-HDL cholesterol is a secondary target of therapy with treatment goals that are 30 mg/dL greater than the LDL cholesterol target. Literature References: 1. Expert Panel on Integrated Guidelines for Cardiovascular Health and Risk Reduction in Children and Adolescents. Pediatrics 2011;128:S213 2. NCEP Expert Panel. Circulation 2004;110:227 Current Interpretive Data was last revised on 2018. Testing performed by: [address] [address] Chol/HDL ratio 3 [facility] Comment:Testing performed by : [address] [address] Blood 01/26/2025 7:36 AM CDT 01/26/2025 8:11 AM CDT Mukesh Nayak DO LAB BLOOD ORDERABLES Final Result Performing Organization Address [facility] Co de Phone Number [facility] [address] [facility] [place] [place] [address] * Screening Mammogram Bilateral W Paddy (01/21/2025 2:21 PM CDT) Anatomical Region Laterality Modality Breast Bilateral Mammography Impressions 01/24/2025 9:57 AM CDT Bilateral No evidence of malignancy in either breast. OVERALL BI-RADS FINAL ASSESSMENT: 1 - Negative RECOMMENDATION: Recommend bilateral annual screening mammography. Narrative 01/24/2025 9:57 AM CDT EXAMINATION: Screening Mammogram Bilateral W Paddy: 01/21/2025 COMPARISON: Relevant prior studies available at the time of interpretation were reviewed. TECHNIQUE: Mammography was performed with 2D and digital breast tomosynthesis (DBT) images. CAD was utilized. BREAST PARENCHYMAL COMPOSITION: The breasts are almost entirely fatty. FINDINGS: Bilateral There is no suspicious mass, calcification, or architectural distortion in either breast. Self Screening Mammogram IMG MAMMO PROCEDURES Fi nal Result * (ABNORMAL) Erythrocyte sedimentation rate (01/21/2025 7:02 AM CDT) Erythrocyte sedimentation rate 39(H) 1 - 30 mm/hr Comment:Testing performed by : [facility], [address] [place] [address]., [id number] Blood 01/21/2025 7:02 AM CDT 01/21/2025 7:25 AM CDT Mukesh Nayak DO LAB BLOOD ORDERABLES Final Result Performing Organization Address City/[facility] Co de Phone Number [facility] [address] [facility] [employer] [place] [address] * COLONOSCOPY (05/14/2023 1:07 PM CDT) Anatomical Region Laterality Modality Other Narrative Procedure Note Arias, Patrice Jennings, MD - 05/14/2023 1:07 PM CDT ENDOSCOPY LAB Patient Name: Carolann Franco Procedure Date: 05/14/2023 1:07 PM Admit Type: Outpatient Room: [facility] 3 Date of : 1965 Instrument Name: [id number] Gender: Female Note Status: Finalized Procedure: Colonoscopy Indications: High risk colon cancer surveillance: Personalhistory of colonic polyps, Family history of colon cancerin a first-degree relative before age 60 years Providers: Patrice Arias M.D. Referring MD: Mariana Hill M.D. Medicines: Propofol per Anesthesia Complications: No immediate complications. Estimated blood loss:None. Estimated Blood Loss: Estimated blood loss: none. Procedure: Pre-Anesthesia Assessment: - The anesthesia plan was to use moderate sedation/analgesia (conscious sedation). - The risks and benefits of the procedure and the sedation options and risks were discussed with the patient. All questions were answered and informed consent was obtained. The benefits, risks and alternatives of theprocedure and sedation were discussed and informed consentwas obtained. All questions were answered. Please referto the signed informed consent document in the medical record. The scope was passed under direct vision.The Colonoscope was introduced through the anus and advanced to the the cecum, identified byappendiceal orifice and ileocecal valve. The colonoscopy was performed without difficulty. The patient tolerated the procedure well. The quality of the bowel preparation was good. The quality of the bowel preparation was evaluated using the BBPS (BostonBowel Preparation Scale) with scores of: Right Colon = 2 (minor amount of residual staining, small fragmentsof stool and/or opaque liquid, but mucosa seen well), Transverse Colon = 2 (minor amount of residual staining, small fragments of stool and/or opaque liquid, but mucosa seen well) and Left Colon = 2 (minor amount of residual staining, small fragmentsof stool and/or opaque liquid, but mucosa seen well).The total BBPS score equals 6. The quality of the bowel preparation was good. The bowel preparation usedwas SUPREP via split dose instruction. Findings: The perianal exam findings include non-thrombosed externalhemorrhoids and non-thrombosed internal hemorrhoids. Multiple small and large-mouthed diverticula were found in thesigmoid colon and descending colon. Impression: - Non-thrombosed external hemorrhoids and non-thrombosed internal hemorrhoids found onperianal exam. - Diverticulosis in the sigmoid colon and in the descending colon. - No specimens collected. Recommendation: - Repeat colonoscopy in 5 years for surveillance. Electronically signed by Patrice Arias M.D. Patrice Arias M.D. 05/14/2023 1:47:24 PM Number of Addenda: 0 Note Initiated On: 05/14/2023 1:07 PM Scope Withdrawal Time: 0 hours 8 minutes 10 seconds Scope In: 1:28:46 PM Scope Out: 1:43:52 PM us Patrice Arias MD ENDOSCOPY PROCEDURES Final Re sult * Hepatitis C antibody (09/17/2019 7:43 AM [employer]) Hep C Ab NONREACT NONREACTIVE [facility] Comment: Siemens MixgaraurXP using ТАТЬЯНА (chemiluminescent immunoassay) technology. NONREACTIVE: Antibodies to Hepatitis C not detected. This does not exclude early acute Hepatitis C infection, possibility of exposure to Hepatitis C, antibodies below detection limit, or to lack of antibody reactivity to the antigen used in this assay. EQUIVOCAL: Antibodies to Hepatitis C may or may not be present. Sample to be confirmed by real-time PCR method. REACTIVE: Antibodies to Hepatitis C detected.Sample to be confirmed by real-time PCR method. Blood specimen (specimen) 09/17/2019 7:43 AM [employer] 09/17/2019 7:51 AM [employer]BER Narrative Resulting Agency Comment CLI us Mariana Hill MD LAB MICROBIOLOGY - GENERAL ORDERABLES Final Result [address] [address], [facility] [phone] from Last 3 Months or Most Recently Relevant to Health Maintenance Insurance [employer] Address: [facility] [id number] [place] [address] [employer] Address: [facility] [id number] [place] [address] [employer] Address: [facility] [id number] [place] [address] Advance Directives For more information, please contact: [phone] * Full Code (Latest Code Status on File) Date Activated Date Inactivated Comments 05/25/2024 10:27 AM 05/26/2024 5:19 PM * Full Code Date Activated Date Inactivated Comments 05/14/2023 12:42 PM 05/14/2023 6:43 PM * Full Code Date Activated Date Inactivated Comments 05/08/2020 2:58 PM 05/09/2020 6:18 PM * Full Code Date Activated Date Inactivated Comments 01/04/2019 8:36 PM 01/05/2019 5:24 PM Care Teams Assistant Professor Of History Relationship Specialty Start Date End Date Mukesh Nayak DO [address] [place] [address] PCP - General Internal Medicine 06/27/23 Charly Faith MD [address] [place] [address] Consulting Physician Orthopedic Surgery 05/08/20
--- OUTSIDE RECORDS SUMMARY | 2025-02-07 08:23 | XMS_ITS | Encounter Summary ---
Author Organization [facility] Facility Care Team Providers Care Kiln Packer Name Role Phone Andra Castro MD Primary Care Provider + Mariana Hill MD Primary Care Provi kurt Andra Castro MD Primary Care Provider + Andra Castro MD Primary Care Provider + Charly Faith MD Unavailable [phone] Mukesh Nayak DO Primary Care Provider [phone] Encounter Details Date Type Department Care Team (Latest Contact Info) Description 07/16/2018 Orders Only [facility]IN[facility] ProviderChary MD [address] [place] [id number] Social History Tobacco Use Types Packs/Day Years Used Date Smoking Tobacco: Never Smokeless Tobacco: Never Alcohol Use Standard Drinks/Week Comments No 0 (1 standard drink = 0.6 oz pur e alcohol) Comments Unknown Sex and Gender Information Value Date Recorded Sex Assigned at Not on file Legal Sex Female 1:54 AM LOIN PULLER Gender Identity Female 03/08/2021 7:08 AM CDT Sexual Orientation Straight 03/22/2020 1: 05 PM CDT documented as of this encounter Plan of Treatment Not on file documented as of this encounter Procedures Procedure Name Priority Date/Time Associated Diagnosis Comments SCAN - PATHOLOGY 07/17/2018 12:0 0 AM CDT documented in this encounter Results * SCAN - PATHOLOGY (07/17/2018 12:00 AM CDT) Narrative 07/17/2018 12:00 AM CDT Ordered by an unspecified provider. us Historical Provider Final Res ult documented in this encounter Visit Diagnoses Not [...] documented as of this encounter Care Teams Kiln Packer Relationship Specialty Start Date End Date Andra Castro MD [address] [place] [address] PCP - General 04/22/11 12/27/18 Mariana Hill MD [address] [place] [address] PCP - General 12/28/18 12/29/18 Andra Castro MD [address] [place] [address] PCP - General 12/30/18 01/03/19 Andra Castro MD [address] [place] [address] PCP - General 01/04/19 01/12/19 Mukesh Nayak DO [address] [facility] [address] [place] [address] PCP - General Internal Medicine 06/27/23 Charly Faith MD [address] [facility] [address] [place] [address] Consulting Physician Orthopedic Surgery 05/08/20 documented as of this encounter
--- OUTSIDE RECORDS SUMMARY | 2025-02-07 08:23 | XMS_ITS | Referral Summary ---
Author Organization [address] Address [address] [place] [address] Care Team Providers Care Cloth Shearing Supervisor Name Role Phone Charly Faith MD Unavailable [phone] Mukesh Nayak DO Primary Care Provider [phone] Encounters Date Type Department Care Team Description 01/26/2025 7:20 AM CDT Lab [facility] [address] [place] [address] 01/21/2025 6:55 AM CDT Lab [facility] [address] [place] [address] 01/21/2025 2:15 PM CDT - 01/21/2025 11:59 PM CDT Hospital Encounter [facility] - Imaging [address] [facility] [address] [place] [id number] Screening mammogram, encounter for Discharge Disposition: Discharge to home or self care from Last 3 Months Allergies Active Allergy Reactions Criticality Noted Date [...] (5,000 Units total) by mouth daily Active syringe-victoria prince disp unt 3 mL 25 gauge x 1 syringeIndicatio [...] 1 tablet (125 mcg total) by mouth credit authorizer before breakfast 4 Active lansoprazole (PREVACID) 30 [...] 05/25/2024 Assessment & Plan (08/31/2024 11:55 AM PROJECT FINANCE ANALYST): Chronic, stable. Single episode of rapid AF. No recurrence. Recommend observation OFF AADs. If recurrent, AF ablation should be considered. Also encouraged repeat sleep study and treatment of VITO if present. [id number] = 1(female sex). Long-term anticoagulation likely not [...] PM CDT): Chronic Case reviewed with her dye expert Will have her start vitamin B12 injections [...] date Assessment & Plan (09/10/2019 10:20 AM PROJECT FINANCE ANALYST): Work on healthy low carb diet Healthy [...] counseling. Assessment & Plan (09/10/2019 10:25 AM PROJECT FINANCE ANALYST): BMI Follow-up includes: nutrition counseling. Assessment & Plan (07/26/2019 11:11 AM CDT): BMI Follow-up includes: nutrition counseling. History of gastric bypass 07/10/2018 Esophageal dysphagia 07/10/2018 Assessment & Plan (04/20/2021 12:25 PM CDT): Stable Continue current regimen Continue to follow with GI Assessment & Plan (11/19/2019 10:13 AM PROJECT FINANCE ANALYST): Work up under way Continue to follow with GI Call for questions or concerns Acquired hypothyroidism 04/10/2018 Assessment & Plan (05/16/2022 1:58 PM CDT): Chronic, stable Spoke to patient's dye expert Continue current regimen Will place referral to endocrine at [facility] Labs ordered Assessment & Plan (04/20/2021 9:42 AM CDT): Labs ordered Assessment & Plan (12/03/2019 12:03 PM PROJECT FINANCE ANALYST): Thyroid peroxidase antibody slightly elevated, otherwise normal Continue current regimen for now Consider recheck in 6 months Assessment & Plan (11/19/2019 10:21 AM PROJECT FINANCE ANALYST): TSH normal Further labs ordered Abnormal result [...] concerns Assessment & Plan (11/19/2019 10:13 AM PROJECT FINANCE ANALYST): Continue to follow with GI Continue current [...] 04/20/2021 Assessment & Plan (12/03/2019 12:03 PM PROJECT FINANCE ANALYST): May be related to her previous gastric bypass We discussed talking to work bariatric surgeon, but he is no longer in practice I have asked her to touch base with her linter operator who is actually seen the procedure she [...] Primary osteoarthritis of left knee 11/17/2017 04/20/2021 Immunizations Immunization Administration Dates Next Due Influenza, Unspecified 06/29/2022(Deferr ed: Patient Refused),06/29/2022(Deferred: Patient decision),06/29/2021(Deferred: Patient decision),06/29/2021(Deferred: Patient Refused),06/29/2020(Deferred: Patient Refused),06/29/2019(Deferred: Patient Refused),06/29/2018(Deferred: Patient Refused) Pfizer SARS-CoV-2 Monovalent Vaccination (12+ Yrs) PURPLE 01/26/2021,01/05/2021 Tdap 03/21/2023 Social History Tobacco Use Types Packs/Day Years Used Date Smoking Tobacco: Never Smokeless Tobacco: Never Tobacco Cessation:Counseling Given: Not Answered Alcohol Use Standard Drinks/Week Comments No 0 (1 standard drink = 0.6 oz pur e alcohol) [facility] Utilities Answer Date Recorded In the past 12 months has th e electric, gas, oil, or water company [...] often do you attend chur ch or gnosticist services? Never 05/26/2024 Do you belong to any clubs o r organizations such as gnosticist groups, unions, fraternal or athletic groups, or [...] any time in the past 12 m [facility], were you homeless or living [...] on file Legal Sex Female 1:54 AM PROJECT FINANCE ANALYST Gender Identity Female 03/08/2021 7:08 AM CDT Sexual Orientation Straight 03/22/2020 1: 05 PM CDT Last Filed Vital Signs Vital Sign Reading Time Taken Comments Blood Pressure 129/82 08/31/2024 11:38 AM PROJECT FINANCE ANALYST Pulse 82 08/31/2024 11:38 AM PROJECT FINANCE ANALYST Temperature 36.9 C (98.5 F) 07/14/2024 7:28 PM CDT Respiratory Rate 16 07/14/2024 7:28 PM CDT Oxygen Saturation 98% 08/31/2024 11: 38 AM PROJECT FINANCE ANALYST Inhaled Oxygen Concentration - - Weight 120.2 kg (264 lb 15.9 oz) 01/21/2025 2:42 PM CDT Height 170.2 cm (5' 7 ) 01/21/2025 2:42 PM CDT Body Mass Index 41.5 01/21/2025 2:42 PM CDT Plan of Treatment Not on file Medical Devices Implanted Type Area Blunger Machine Operator Device Identifier Shelf Expiration Date Model / Serial / Lot [employer] [id number] Vanguard 62.5mm Cruciate Retaining Primary Knee Left Component - [id number] Implanted:Qty: 1 on 01/04/2019 by Charly Faith MD at [facility] [employer] [id number] 10/05/2028 [id number] / / [id number] [employer] [id number] Ascent Maxim 71mm 1 Piece Cruciate Fin Knee Tray Tibial Interlok - [id number] Implanted:Qty: 1 on 01/04/2019 by Charly Faith MD at [facility] [employer] 10/12/2028 [id number] / / [employer] [id number] Simplex P Radiopaque; Full Dose Cement Bone - [id number] Implanted:Qty: 1 on 01/04/2019 by Charly Faith MD at [facility] [employer] 02/26/2021 [id number] / / [id number] [employer] [id number] Vanguard [id number] Cruciate Retaining Knee Bearing Tibial E1 - [id number] Implanted:Qty: 1 on 01/04/2019 by Charly Faith MD at [facility] [employer] [id number] 10/29/2023 [id number] / / [id number] [employer] [id number] Simplex P Radiopaque Full Dose Cement Bone Sterile - Sna - [id number] Implanted:Qty: 1 on 05/08/2020 by Charly Faith MD at [facility] Right: Knee [employer] 09/28/2021 [id number] / NA / [id number] [employer] [id number] Ascent Maxim 71mm 1 Piece Cruciate Fin Knee Tray Tibial Interlok - Sna - [id number] Implanted:Qty: 1 on 05/08/2020 by Charly Faith MD at [facility] Right: Knee [employer] 03/27/2030 [id number] / NA / [id number] [employer] [id number] Vanguard 65mm Cruciate Retaining Primary Knee Right Component - Sna - [id number] Implanted:Qty: 1 on 05/08/2020 by Charly Faith MD at [facility] Right: Knee [employer] [id number] 09/23/2029 [id number] / NA / [id number] 71/[id number] Vanguard Arcom Knee Cruciate Retain Direct - Sna - [id number] Implanted:Qty: 1 on 05/08/2020 by Charly Faith MD at [facility] Right: Knee [employer] [id number] 05/29/2024 [id number] / NA / [id number] Procedures Procedure Name Priority Date/Time Associated Diagnosis [...] HEPATITIS C ANTIBODY Routine 09/17/2019 7:43 AM PROJECT FINANCE ANALYST Well adult exam Need for hepatitis C [...] last revised on 2020. Testing performed by: [facility], [address] [place]., [address] KAITLIN, quant 1:80 titer NÉSTOR MCCORMACK Comment:Testing performed by : [facility], [address] [place]., [address] KAITLIN, interp Speckled(A) NÉSTOR MCCORMACK Comment:Testing performed by : [facility], [address] [place]., [address] Blood 01/26/2025 7:36 AM CDT 01/26/2025 11:14 AM CDT Mukesh Nayak DO LAB BLOOD ORDERABLES Final Result Performing Organization Address [facility] [employer] Phone Number [address] [place] [address] * Ferritin (01/26/2025 7:36 AM CDT) Ferritin 40 15 - 150 ng/mL Comment:Testing performed by : [facility], [address] [place] [address]., [address] Blood 01/26/2025 7:36 AM CDT 01/26/2025 8:11 AM CDT Mukesh Nayak DO LAB BLOOD ORDERABLES Final Result Performing Organization Address City/[facility] [employer] Phone Number [address] [address] * Lipid panel (01/26/2025 7:36 AM CDT) [...] last revised on 2018. Testing performed by: [address] [address] Triglycerides 82 <=149 mg/dL NÉSTOR Comment: Interpretive [...] last revised on 2018. Testing performed by: [address] [address] HDL 55 >=40 mg/dL NÉSTOR Comment: Interpretive [...] last revised on 2018. Testing performed by: [address] [address] LDL, calculated 101 <=129 mg/dL NÉSTOR Comment: Interpretive Data Ages < or = 19 years Acceptable: <110 mg/dL Borderline high: 110-129 mg/dL High: >or= 130 mg/dL Ages > or = 20 years Optimal: <100 mg/dL Near optimal: 100-129 mg/dL Borderline high: 130-159 mg/dL High: >160 mg/dL Calculated using the Shah LDL-C estimating equation. This equation was implemented on 2024. Prior to this date LDL-C was estimated using the Friedewald equation. Literature References: 1. Expert Panel on Integrated Guidelines for Cardiovascular Health and Risk Reduction in Children and Adolescents. Pediatrics 2011;128:S213 2. NCEP Expert Panel. Circulation 2004;110:227 3. Pablo Cheek al. LEIDA Cardiol. 2019January 27;5(5):540-548. doi: 10.1001/jamacardio.2020.0013 Current Interpretive Data was last revised on 2024. Testing performed by: [address] [address] Non-HDL Cholesterol 116 mg/dL NÉSTOR MCCORMACK Comment: [...] last revised on 2018. Testing performed by: [address] [address] Chol/HDL ratio 3 NÉSTOR MCCORMACK Comment:Testing performed by : [address] [address] Blood 01/26/2025 7:36 AM CDT 01/26/2025 8:11 AM CDT us Mukesh Nayak DO LAB BLOOD ORDERABLES Final Result NÉSTOR MCCORMACK [address] [facility] Department [place] [address] * Screening Mammogram Bilateral W Paddy (01/21/2025 [...] calcification, or architectural distortion in either breast. us Self Screening Mammogram IMG MAMMO PROCEDURES Fi nal Result * (ABNORMAL) Erythrocyte sedimentation rate (01/21/2025 7:02 AM CDT) Erythrocyte sedimentation rate 39(H) 1 - 30 mm/hr Comment:Testing performed by : [facility], [address] [place] [address]., [address] Blood 01/21/2025 7:02 AM CDT 01/21/2025 7:25 AM CDT Mukesh Nayak DO LAB BLOOD ORDERABLES Final Result [facility] [address] [facility] Department [place] [address] * COLONOSCOPY (05/14/2023 1:07 PM CDT) Anatomical Region Laterality Modality Other Narrative Procedure Note Patrice Arias MD - 05/14/2023 1:07 PM CDT ENDOSCOPY LAB Patient Name: Carolann Franco Procedure Date: 05/14/2023 1:07 PM Admit Type: Outpatient Room: [facility] 3 Date of : 1965 Instrument Name: [id number] Gender: Female Note Status: Finalized Procedure: Colonoscopy [...] In: 1:28:46 PM Scope Out: 1:43:52 PM Patrice Arias MD ENDOSCOPY PROCEDURES Final Re sult * Hepatitis C antibody (09/17/2019 7:43 AM PROJECT FINANCE ANALYST) Hep C Ab NONREACT NONREACTIVE [facility][NOTE 3] Comment: Siemens CentaurXP using ТАТЬЯНА (chemiluminescent immunoassay) technology. NONREACTIVE: Antibodies [...] method. Blood specimen (specimen) 09/17/2019 7:43 AM PROJECT FINANCE ANALYST 09/17/2019 7:51 AM PROJECT FINANCE ANALYST Narrative Resulting Agency Comment CLI us Mariana Hill MD LAB MICROBIOLOGY - GENERAL ORDERABLES Final Result [facility] [address] [place] [address], [facility] [phone] from Last 3 Months or Most Recently Relevant to Health Maintenance Insurance [employer] [address] [place], [place] [address] CIG[employer] Advance Directives For more information, please contact: [phone] * Full Code (Latest Code Status on File) Date Activated Date Inactivated Comments 05/25/2024 10:27 AM 05/26/2024 5:19 PM * Full Code Date Activated Date Inactivated Comments 05/14/2023 12:42 PM 05/14/2023 6:43 PM * Full Code Date Activated Date Inactivated Comments 05/08/2020 2:58 PM 05/09/2020 6:18 PM * Full Code Date Activated Date Inactivated Comments 01/04/2019 8:36 PM 01/05/2019 5:24 PM Care Teams Cloth Shearing Supervisor Relationship Specialty Start Date End Date Mukesh Nayak DO [address] [place] [address] PCP - General Internal Medicine 06/27/23 Charly Faith MD [address] [place] [address] Consulting Physician Orthopedic Surgery 05/08/20
[2025-02-07 08:29] VITALS: BP 102/69; PULSE 84; RESP 18; TEMP 36.3; O2SAT 96
[2025-02-07 08:52] LABS: EDSTREPNEGPOS1 Negative (Negative)
== END 2025-02-07 09:00 | disposition home or self-care (01) ==
PROVIDERS: Emergency Provider Nurse Practitioner Family; PCP Internal Medicine
DX: J18.1 Lobar pneumonia, unspecified organism (principal); J01.00 Acute maxillary sinusitis, unspecified; Z87.891 Personal history of nicotine dependence; I48.91 Unspecified atrial fibrillation; E66.01 Morbid (severe) obesity due to excess calories; Z68.39 Body mass index [BMI] 39.0-39.9, adult; E03.9 Hypothyroidism, unspecified; M81.0 Age-related osteoporosis without current pathological fracture; K21.9 Gastro-esophageal reflux disease without esophagitis; M19.90 Unspecified osteoarthritis, unspecified site; J45.909 Unspecified asthma, uncomplicated; Z90.710 Acquired absence of both cervix and uterus; Z96.651 Presence of right artificial knee joint; Z79.01 Long term (current) use of anticoagulants
CPT/HCPCS: 71046; 87880; 99213; G0463

== ENCOUNTER 2025-02-11 11:05 | Outpatient (CLI) | payer OTHER, SELFPAY ==
--- NOTE | ~2025-02-11 | XR_ITS ---
Clinical Indication: Pneumonia PA and lateral views of the chest: Comparison: 02/07/2025 Findings: The lungs are clear, without evidence of focal consolidation or pleural effusion. Cardiome diastinal silhouette is within normal limits. Bones and soft tissues are unremarkable. Impression: Clear lungs. Reviewed, dictated and finalized at location . Impression: Clear lungs.
== END 2025-02-11 11:06 | disposition home or self-care (01) ==
LOC: GOSHIMG 11:06
PROVIDERS: PCP Clinical Nurse Specialist; Visit Provider Clinical Nurse Specialist
DX: J18.9 Pneumonia, unspecified organism (principal)
CPT/HCPCS: 71046

== ENCOUNTER 2025-06-17 10:36 | Emergency (ER) | payer OTHER, SELFPAY ==
--- NOTE | ~2025-06-17 | XR_ITS ---
Examination: XR chest 2V Clinical History: acute cough Comparison: 02/11/2025 Technique: PA and Lateral Findings: Cardiomediastinal silhouette normal size and configuration. Lungs clear. Right basilar calcified granuloma as before. No acute bony abnormality. IMPRESSION: 1. No acute cardiopulmonary findings. Reviewed, dictated and finalized at location R.
--- OUTSIDE RECORDS SUMMARY | 2025-06-17 10:39 | XMS_ITS | Encounter Summary ---
Author Organization [facility] Facility Care Team Providers Care Compensator Worker Name Role Phone Andra Castro MD Primary Care Provider + Mariana Hill MD Primary Care Provi kurt Andra Castro MD Primary Care Provider + Andra Castro MD Primary Care Provider + Charly Faith MD Unavailable [phone] Mukesh Nayak DO Primary Care Provider [phone] Encounter Details Date Type Department Care Team (Latest Contact Info) Description 05/01/2018 Orders Only [facility]INCON[facility] ProviderChary MD [address] [place], [place] [id number] Social History Tobacco Use Types Packs/Day Years Used Date Smoking Tobacco: Never Smokeless Tobacco: Never Alcohol Use Standard Drinks/Week Comments No 0 (1 standard drink = 0.6 oz pur e alcohol) Comments Unknown Sex and Gender Information Value Date Recorded Sex Assigned at Not on file 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 Gender Identity Female 03/08/2021 7:08 AM CDT [...] documented as of this encounter Care Teams Compensator Worker Relationship Specialty Start Date End Date Andra Castro MD [address] [place] [address] PCP - General 04/22/11 12/27/18 Mariana Hill MD [facility] [address] [place] [address] PCP - General 12/28/18 12/29/18 Andra Castro MD [address] [place] [address] PCP - General 12/30/18 01/03/19 Andra Castro MD [address] [place] [address] PCP - General 01/04/19 01/12/19 Mukesh Nayak DO [address] [facility] [address] [place] [address] PCP - General Internal Medicine 06/27/23 Charly Faith MD [address] [facility] [address] [place] [address] Consulting Physician Orthopedic Surgery 05/08/20 documented as of this encounter
--- OUTSIDE RECORDS SUMMARY | 2025-06-17 10:39 | XMS_ITS | Encounter Summary ---
Author Organization [facility] Facility Care Team Providers Care Junior Sales Assistant Name Role Phone Andra Castro MD Primary Care Provider + Mariana Hill MD Primary Care Provi kurt Andra Castro MD Primary Care Provider + Andra Castro MD Primary Care Provider + Charly Faith MD Unavailable [phone] Mukesh Nayak DO Primary Care Provider [phone] Encounter Details Date Type Department Care Team (Latest Contact Info) Description 07/16/2018 Orders Only [facility] CLINCONV ProviderChary MD [address] [place] [address] Social History Tobacco Use Types Packs/Day Years Used Date Smoking Tobacco: Never Smokeless Tobacco: Never Alcohol Use Standard Drinks/Week Comments No 0 (1 standard drink = 0.6 oz pur e alcohol) Comments Unknown Sex and Gender Information Value Date Recorded Sex Assigned at Not on file 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 Gender Identity Female 03/08/2021 7:08 AM [...] documented as of this encounter Care Teams Junior Sales Assistant Relationship Specialty Start Date End Date Andra Castro MD [address] [place] [address] PCP - General 04/22/11 12/27/18 Mariana Hill MD [address] [place] [address] PCP - General 12/28/18 12/29/18 Andra Castro MD [address] [place] [address] PCP - General 12/30/18 01/03/19 Andra Castro MD [address] [place] [address] PCP - General 01/04/19 01/12/19 Mukesh Nayak DO [address] [facility] [address] [place] [address] PCP - General Internal Medicine 06/27/23 Charly Faith MD [address] [facility] [address] [place] [address] Consulting Physician Orthopedic Surgery 05/08/20 documented as of this encounter
--- OUTSIDE RECORDS SUMMARY | 2025-06-17 10:42 | XMS_ITS | Clinical Summary ---
Author Organization [address] Address [address] [place] [address] Care Team Providers Care Wind Plant Manager Name Role Phone Charly Faith MD Unavailable [phone] Mukesh Nayak DO Primary Care Provider [phone] Allergies Active Allergy Reactions Criticality Noted Date [...] 1 tablet (125 mcg total) by mouth director of early childhood education before breakfast 4 Active lansoprazole (PREVACID) 30 [...] by mouth daily 30 tablet 2 4 Active amiodarone (PACERONE) 400 mg tablet Take [...] Active Problems Problem Noted Date Diagnosed Date Paroxysmal atrial fibrillation 05/25/2024 Assessment & Plan (03/02/2025 9:06 AM CDT): Chronic, stable. No recurrence after initial episode. An absence of ongoing episodes, reasonable to continue with an expectant management strategy for now. I counseled her to contact us if atrial fibrillation returns. In that case, catheter ablation would be considered. [id number] = 1 (female sex), anticoagulation not recommended. --Stop apixaban --F/u 1 year Assessment & Plan (08/31/2024 11:55 AM PLANT FLOOR AUTOMATION MANAGER): Chronic, stable. Single episode of rapid AF. No recurrence. Recommend observation OFF AADs. If recurrent, AF ablation should be considered. Also encouraged repeat sleep study and treatment of VITO if present. [id number] = 1(female sex). Long-term anticoagulation likely not [...] PM CDT): Chronic Case reviewed with her buck presser Will have her start vitamin B12 injections [...] date Assessment & Plan (09/10/2019 10:20 AM PLANT FLOOR AUTOMATION MANAGER): Work on healthy low carb diet Healthy [...] counseling. Assessment & Plan (09/10/2019 10:25 AM PLANT FLOOR AUTOMATION MANAGER): BMI Follow-up includes: nutrition counseling. Assessment & Plan (07/26/2019 11:11 AM CDT): BMI Follow-up includes: nutrition counseling. History of gastric bypass 07/10/2018 Esophageal dysphagia 07/10/2018 Assessment & Plan (04/20/2021 12:25 PM CDT): Stable Continue current regimen Continue to follow with GI Assessment & Plan (11/19/2019 10:13 AM PLANT FLOOR AUTOMATION MANAGER): Work up under way Continue to follow with GI Call for questions or concerns Acquired hypothyroidism 04/10/2018 Assessment & Plan (05/16/2022 1:58 PM CDT): Chronic, stable Spoke to patient's buck presser Continue current regimen Will place referral to endocrine at [facility] Labs ordered Assessment & Plan (04/20/2021 9:42 AM CDT): Labs ordered Assessment & Plan (12/03/2019 12:03 PM PLANT FLOOR AUTOMATION MANAGER): Thyroid peroxidase antibody slightly elevated, otherwise normal Continue current regimen for now Consider recheck in 6 months Assessment & Plan (11/19/2019 10:21 AM PLANT FLOOR AUTOMATION MANAGER): TSH normal Further labs ordered Abnormal result [...] concerns Assessment & Plan (11/19/2019 10:13 AM PLANT FLOOR AUTOMATION MANAGER): Continue to follow with GI Continue current [...] 04/20/2021 Assessment & Plan (12/03/2019 12:03 PM PLANT FLOOR AUTOMATION MANAGER): May be related to her previous gastric bypass We discussed talking to work bariatric surgeon, but he is no longer in practice I have asked her to touch base with her beading installer who is actually seen the procedure she [...] Encounters Date Type Department Care Team Description 04/05/2025 3:45 PM CDT Lab [facility] [address] [place] [address] 04/05/2025 Orders Only [facility] Diagnostic Imaging [address] [place] [address] Mukesh Nayak, DO from Last 3 Months Immunizations Immunization Administration [...] Relation Name Comments Arthritis Brother 1 Darell Watson Arthritis Brother 2 Twin brother ESKD Requiring Dialysis Father Romero Horner ied from Covid-19 Hypertension Father Romero Watson traumatic brain injury Father Romero Watson Breast cancer Maternal Grandmother Hanna Murray 70s Clotting disorder Maternal Grandmother Hanna Murray Arthritis Mother Carole Watson Colon cancer Mother Carole Watson Miscarriages / Stillbirths Mother Carole Watson Breast cancer Mother's Sister 1 Melinda Dejesus 40/50s Miscarriages / Stillbirths Mother's Sister 1 Melinda campos Breast cancer Mother's Sister 2 40/50s Alzheimer's disease Paternal Grandfather Ketan Castillo s Colon cancer Paternal Grandmother 40s Arthritis Sister Aubree Selina Blood Clot Sister Aubree Marks x 2 Clotting disorder Sister Aubree Selina on bloo d thinner Mental illness Son [...] drink = 0.6 oz pur e alcohol) [facility] Utilities Answer Date Recorded In the past 12 months has [employer], gas, oil, or water [employer] threatened to shut off services in your home? No 05/26/2024 Social Connection and Isolation Panel Answer Date Recorded In a typical week, how many times do you talk on the phone with family, friends, or neighbors? More than three times a week 05/26/2024 How often do you get togethe r with friends or relatives? Twice a week 05/26/2024 How often do you attend chur ch or adventist services? Never 05/26/2024 Do you belong to any clubs o r organizations such as catholic groups, unions, fraternal or athletic groups, or [...] any time in the past 12 m [facility], were you homeless or living in a care home (including now)? No 05/26/2024 Personal Safety Answer Date Recorded Have you ever been in or are you currently in a harmful physical or emotional relationship or is someone making you feel afraid or unsafe? Denies 07/14/2024 Comments No Sex and Gender Information Value Date Recorded Sex Assigned at Not on file Legal Sex Female 1:54 AM PLANT FLOOR AUTOMATION MANAGER Gender Identity Female 03/08/2021 7:08 AM CDT [...] Comments Blood Pressure 129/82 08/31/2024 11:38 AM PLANT FLOOR AUTOMATION MANAGER Pulse 81 03/02/2025 9:02 AM CDT Temperature 36.9 C (98.5 F) 07/14/2024 7:28 PM CDT Respiratory Rate 16 07/14/2024 7:28 PM CDT Oxygen Saturation 98% 08/31/2024 11:38 AM PLANT FLOOR AUTOMATION MANAGER Inhaled Oxygen Concentration - - Weight 119.3 kg (263 lb) 03/02/2025 9:02 AM CDT Height 170.2 cm (5' 7) 03/02/2025 9:02 AM CDT Body Mass Index 41.19 03/02/2025 9:02 AM CDT Plan of Treatment Health Maintenance Due Date Last Done Comments Hepatitis B Screening 12/08/1981 Pneumococcal vaccine <65 (1 of 2 - PCV) 12/08/1982 Zoster Vaccine (1 of 2) 12/08/2013 Regular Well Visit/Exam 18-64 04/20/2022, 04/20/2021, 09/10/2019 Depression Screening 03/21/2024 03/21/2023, 01/22/2023, 05/16/2022, Additional history exists Covid-19 Vaccine (3 - 2024-2 6 season) 2025 01/26/2021, 01/05/2021 Influenza Vaccine (#1) 2025 Breast Cancer Screening-Mammogram 01/21/2026 01/21/2025, 10/31/2023, 09/13/2022, Additional history exists DTaP/Tdap/Td Vaccine (2 - Td or Tdap) 03/21/2033 03/21/2023 Colon Cancer Screening-Colonoscopy 05/14/2033 05/14/2023, 07/01/2016 Hepatitis C Screening Completed 09/17/2019 Colon Cancer Screening-CT Colonography Discontinued 05/14/2023, 07/01/2016 Colon Cancer Screening-DNA Stool Discontinued 05/14/20 23, 07/01/2016 Colon Cancer Screening-FIT Discontinued 05/14/2023, Colon Cancer Screening-Sigmoidoscopy Discontinued 05/14/2023, 07/01/2016 Medical Devices Implanted Type Area Cuff Runner Device Identifier Shelf Expiration Date Model / Serial / Lot [employer] [id number] Vanguard 62.5mm Cruciate Retaining Primary Knee Left Component - [id number] Implanted:Qty: 1 on 01/04/2019 by Charly Faith MD at [facility] [employer] [id number] 10/05/2028 [id number] / / [id number] [employer] [id number] Ascent Maxim 71mm 1 Piece Cruciate Fin Knee Tray Tibial Interlok - [id number] Implanted:Qty: 1 on 01/04/2019 by Charly Faith MD at [facility] [employer] 10/12/2028 [id number] / / [employer] [id number] Simplex P Radiopaque; Full Dose Cement Bone - [id number] Implanted:Qty: 1 on 01/04/2019 by Charly Faith MD at [facility] [employer] 02/26/2021 [id number] / / [id number] [employer] [id number] Vanguard 71/[id number] Cruciate Retaining Knee Bearing Tibial E1 - [id number] Implanted:Qty: 1 on 01/04/2019 by Charly Faith MD at [facility] [employer] [id number] 10/29/2023 [id number] / / [id number] [employer] 6191-1-010 Simplex P Radiopaque Full Dose Cement Bone Sterile - Sna - [id number] Implanted:Qty: 1 on 05/08/2020 by Charly Faith MD at [facility] Right: Knee [employer] 09/28/2021 [id number] / NA / [id number] [employer] [id number] Ascent Maxim 71mm 1 Piece Cruciate Fin Knee Tray Tibial Interlok - Sna - [id number] Implanted:Qty: 1 on 05/08/2020 by Charly Faith MD at [facility] Right: Knee [employer] 03/27/2030 [id number] / NA / [id number] [employer] [id number] Vanguard 65mm Cruciate Retaining Primary Knee Right Component - Sna - [id number] Implanted:Qty: 1 on 05/08/2020 by Charly Faith MD at [facility] Right: Knee [employer] [id number] 09/23/2029 [id number] / NA / [id number] Brng [id number] Vanguard Arcom Knee Cruciate Retain Direct - Sna - [id number] Implanted:Qty: 1 on 05/08/2020 by Charly Faith MD at [facility] Right: Knee [employer] [id number] 05/29/2024 [id number] / [id number] / [id number] Procedures Procedure Name Priority Date/Time Associated Diagnosis Comments ALDOLASE Routine 04/05/2025 3:57 PM CDT CREATINE KINASE (CK), TOTAL Routine 04/05/2025 3:57 PM CDT CRP (ACUTE PHASE) Routine 04/05/2025 3:5 7 PM CDT SCREENING MAMMOGRAM BILATERAL W PADDY Schedule Routine, Read Routine (OP Routine) 01/21/2025 2:21 PM CDT Screening mammogram, encounter for COLONOSCOPY 05/14/2023 1:07 PM CDT HEPATITIS C ANTIBODY Routine 09/17/2019 7:43 AM PLANT FLOOR AUTOMATION MANAGER Well adult exam Need for hepatitis C screening test from Last 3 Months or Most Recently Relevant to Health Maintenance Results * Aldolase (04/05/2025 3:57 PM CDT) Aldolase 4.2 0.1 - 8.0 Units/L Comment:Testing performed by : [facility], [address] [facility], [place]., [address] Blood 04/05/2025 3:57 PM CDT 04/05/2025 8:12 PM CDT Mukesh Nayak DO LAB BLOOD ORDERABLES Final Result Performing Organization Address City/[facility] Co de Phone Number [id number] [employer] [place] [address] * CRP (acute phase) (04/05/2025 3:57 PM CDT) Pathologist [facility] CRP 3.6 <=10.0 mg/L Comment:Testing performed by : [address] [address] Blood 04/05/2025 3:57 PM CDT 04/05/2025 4:03 PM CDT Mukesh Nayak DO LAB BLOOD ORDERABLES Final Result Performing Organization Address [facility] Co de Phone Number [address] [address] * Creatine kinase (CK), total (04/05/2025 3:57 PM CDT) Pathologist [facility] CK 60 30 - 200 Units/L Comment:Testing performed by : [address] [address] Blood 04/05/2025 3:57 PM CDT 04/05/2025 4:03 PM CDT Mukesh Nayak DO LAB BLOOD ORDERABLES Final Result Performing Organization Address [facility] Co de Phone Number [address] [address] * Screening Mammogram Bilateral W Paddy (01/21/2025 [...] IMG MAMMO PROCEDURES Fi nal Result * COLONOSCOPY (05/14/2023 1:07 PM CDT) Anatomical Region Laterality Modality Other Narrative Procedure Note Patrice Arias MD - 05/14/2023 1:07 PM CDT ENDOSCOPY LAB Patient Name: Carolann Franco Procedure Date: 05/14/2023 1:07 PM Admit Type: Outpatient Room: [facility] 3 Date of : 1965 Instrument [...] * Hepatitis C antibody (09/17/2019 7:43 AM PLANT FLOOR AUTOMATION MANAGER) Hep C Ab NONREACT NONREACTIVE [facility] Comment: Siemens CentaurXP using ТАТЬЯНА (chemiluminescent immunoassay) [...] method. Blood specimen (specimen) 09/17/2019 7:43 AM PLANT FLOOR AUTOMATION MANAGER 09/17/2019 7:51 AM PLANT FLOOR AUTOMATION MANAGER Narrative Resulting Agency Comment CLI us Mariana Hill MD LAB MICROBIOLOGY - GENERAL ORDERABLES Final Result [facility] [address] [phone] from Last 3 Months or Most Recently Relevant to Health Maintenance Insurance [employer] Address: [id number] [place] [id number] [employer] Address: [facility] [address] [place] [address] [employer] Address: [facility] [id number] [place] [address] Advance Directives For more information, please contact: [phone] * Full Code (Latest Code Status on File) Date Activated Date Inactivated Comments 05/25/2024 10:27 AM 05/26/2024 5:19 PM * Full Code Date Activated Date Inactivated Comments 05/14/2023 12:42 PM 05/14/2023 6:43 PM * Full Code Date Activated Date Inactivated Comments 05/08/2020 2:58 PM 05/09/2020 6:18 PM * Full Code Date Activated Date Inactivated Comments 01/04/2019 8:36 PM 01/05/2019 5:24 PM Care Teams Wind Plant Manager Relationship Specialty Start Date End Date Mukesh Nayak DO [address] [place] [address] PCP - General Internal Medicine 06/27/23 Charly Faith MD [address] [place] [address] Consulting Physician Orthopedic Surgery 05/08/20
--- OUTSIDE RECORDS SUMMARY | 2025-06-17 10:42 | XMS_ITS | Clinical Summary ---
Author Organization [facility] Address [address] [place] [address] Care Team Providers Care Winch Operator Name Role Phone Unavailable Primary Care Provider [...] 9:01 AM CDT Height 172.7 cm (5' 8) 01/13/2015 9:01 AM CDT Body Mass Index [...] COVID-19 Vaccine ( - 2023-2 5 season) 2025 RSV Immunization or 60+ Years (1 - [...]
[2025-06-17 10:51] VITALS: BP 109/70; PULSE 73; RESP 18; TEMP 36.1; O2SAT 98
--- NOTE | 2025-06-17 10:51 | ED.URI ---
HPI - URI/Sore Throat General Chief Complaint: Upper Respiratory Infection Stated Complaint: deep cough/sinus issues Time Seen by Provider: 06/17/25 10:51 Source: patient, RN notes reviewed and old records reviewed Mode of arrival: ambulatory Limitations: no limitations History of Present Illness HPI Narrative: 59 year old female who presents to [facility] care with complaints of frequent harsh cough, sinus congestion and drainage and chest congestion since Friday with fever up to 101F on Friday, none since. Patient reports that she has some chest soreness and some tenderness to her right shoulder blade with cough.Patient does have history of asthma and has had pneumonia in past. Patient states that she has taken Tylenol. NyQuil, Mucinex and has used her inhalers and nebulizer machine for her symptoms.Patient reports that she has noted some wheezing and has felt dyspnea with exertion. MD elicited complaint: fever, cough, rhinorrhea, nasal congestion and sinus pain Pertinent past history: pneumonia and asthma Onset (ago): day(s) (5) Consistency: constant Severity: moderate Able to tolerate fluids by mouth: Yes Treatments prior to arrival: acetaminophen and other (NyQuil,Mucinex, inhalers and nebulizer) Related Data Home Medications ?Medication ?Instructions ?Recorded ?Confirmed ?Last Taken ?Type calcium carbonate (Antacid Ultra 400 mg PO DAILY 05/22/23 02/11/25 Unknown History Strength) cholecalciferol (vitamin D3) 125 125 mcg PO DAILY 05/22/23 02/11/25 Unknown History mcg (5,000 unit) capsule magnesium chloride 70 mg 70 mg PO DAILY 05/22/23 02/11/25 Unknown History (magnesium chloride) tablet,delayed release mecobalamin (vitamin B12) 1,000 1,000 mcg PO DAILY 05/22/23 02/11/25 Unknown History mcg chewable tablet omeprazole 20 mg capsule,delayed 20 mg PO DAILY 10/26/24 02/11/25 Unknown History release Allergies Allergy/AdvReac Type Severity Reaction Status Date / Time aspirin AdvReac Intermediate Nausea and Verified 06/17/25 10:46 Vomiting codeine AdvReac Intermediate Nausea and Verified 06/17/25 10:46 Vomiting Review of Systems Review of Systems: CONSTITUTIONAL:Reports malaise, chills, sweats, or fever. EYES: Denies visual changes, redness, or discharge. ENT: Reports rhinorrhea, congestion, sinus pain,no otalgia and no sore throat. CARDIOVASCULAR: Denies chest pain, palpitations, or edema. RESPIRATORY: Reports frequent harsh cough.? Reports some dyspnea with exertion chest soreness and right shoulder blade discomfort with cough GASTROINTESTINAL: Denies abdominal pain, nausea, vomiting, diarrhea SKIN: Denies rash or itching. MUSCULOSKELETAL: Denies myalgia. NEUROLOGIC: Denies headache. All systems reviewed & are unremarkable except as noted in HPI and below PMFSH Past Medical History Medical History Chronic anticoagulation Elbow fracture, left Atrial fibrillation with rapid ventricular response Afib Family history of hypercoagulable state Morbid obesity due to excess calories Acquired hypothyroidism Osteoarthritis, hand, primary localized Obesity (BMI 30.0-34.9) Thyroid disorder Osteoporosis GERD (gastroesophageal reflux disease) Arthritis Asthma Allergies Surgical History Surgical History S/P complete hysterectomy 07/2002 Status post right knee replacement Family History Family History Father Hypertension Mother Family history of hypothyroidism Other Diabetes mellitus Family history of cardiovascular disease Family history of malignant neoplasm Social History Social History Smoking status: Former smoker Second hand tobacco smoke exposure: No Alcohol intake: never Substance use: never Substance use type: does not use Lack of Transportation: No Lack of Food: Never True Current Housing: I Have Housing Concerned About Future Housing: No Difficulty Paying Gas/Electric Bills: No Difficulty Paying for Meds: No Currently Unemployed: No Education: Associate Degree Difficulty w/ Childcare or Family Care: No Living arrangements: with family Occupation/Education: occupation Gender identity (if verbalized by the patient): Female Agree to blood products: Yes Comments At time of signature, agree with nursing past medical, surgical, social and family history. There is no relevant family history pertinent to the presenting complaint Exam Narrative: GENERAL: Well-appearing, well-nourished, and in no acute distress. HEAD: Normocephalic EYES: PERRLA, conjunctivae clear ENT: Nares clear, turbinates edematous and erythematous, clear discharge sinus pressure. Mucous membranes moist. TM pearly suárez with dull light reflex bilaterally; no tragal tenderness. Oropharynx erythematous without lesions. Tonsils not enlarged and without exudate, no drooling, no hoarseness, no trismus, uvula midline.post nasal drainage NECK: Supple. No lymphadenopathy CHEST: Decreased to auscultation, breath sounds equal. No wheezing, rhonchi, rales, or stridor. No respiratory distress, speaks in full sentences.harsh cough SAO2 98% on room air HEART: Regular rate and rhythm. No murmur heard. SKIN: Warm, dry, no rash. NEURO: Alert and oriented x3. PSYCH: Normal mood and affect Course Course Emergency Course: Patient is aware of diagnosis, understands and agrees to treatment plan.? Anticipatory guidance given.? Patient agrees to follow-up as directed and is aware of reasons to seek care at the emergency department. Portions of this record may have been created with voice recognition software Level of Care: Express Care Visit Vital Signs Vital signs: Vital Signs Temperature 36.1 C L 06/17/25 10:51 Pulse Rate 73 06/17/25 10:51 Respiratory Rate 18 06/17/25 10:51 Blood Pressure 109/70 06/17/25 10:51 Pulse Oximetry 98 06/17/25 10:51 Oxygen Delivery Room Air 06/17/25 10:51 Temperature 36.1 C L 06/17/25 10:51 Pulse Rate 73 06/17/25 10:51 Respiratory Rate 18 06/17/25 10:51 Blood Pressure 109/70 06/17/25 10:51 Pulse Oximetry 98 06/17/25 10:51 Oxygen Delivery Room Air 06/17/25 10:51 Reviewed MDM - URI/Sore Throat MDM Narrative Medical decision making narrative: Differential diagnosis considered: Baron virus, strep pharyngitis, allergic rhinitis, upper respiratory tract infection, sinusitis, rhinosinusitis, nasopharyngitis. viral pharyngitis, otitis media, otitis externa, pneumonia, bronchitis, viral cough syndrome, viral syndrome, and influenza.? Exam findings show no acute concerns or changes; patient is non-toxic appearing and is in no distress.? Patient is appropriate for outpatient treatment and follow-up. Differential Diagnosis Differential diagnosis: Likely upper respiratory infection, sinusitis, viral infection, bronchitis and other (exacerbation of asthma, pneumonia) Medical Records Attestation: I reviewed the patient's medical records. Lab Data Attestation: I reviewed the patient's lab results. Imaging Data Attestation: I personally reviewed and interpreted this imaging study as follows: My impression: no acute cardiopulmonary findings Radiologist's impression: [facility] [place] [address] [address] XRay Report Signed Patient: Carolann Franco : 1965 MR#: [id number] Age: 59 Acct:[id number] Loc: [facility] ADM Date: 06/17/25Attending Dr: Ordering Physician: Laurie Johnson APRN Date of Service: 06/17/25 Procedure(s): XR chest 2V Accession Number(s): [id number] cc: Laurie Johnson WASTE/MAT[employer] EXCHANGE SPECIALIST; Mukesh Nayak DO~ Examination: XR chest 2V Clinical History: acute cough Comparison: 02/11/2025 Technique: PA and Lateral Findings: Cardiomediastinal silhouette normal size and configuration. Lungs clear. Right basilar calcified granuloma as before. No acute bony abnormality. IMPRESSION: 1. No acute cardiopulmonary findings. Reviewed, dictated and finalized at location R. Please be advised this is a medical document. It is intended for [id number] communication. It is written in medical language and may contain unfamiliar abbreviations or verbiage. Medical documents are intended to carry relevant information, facts as evident, and the clinical opinion of the practitioner at the time of the encounter. This report may have been done utilizing a voice recognition system. Attempts have been made to correct errors. However, there may be uncorrected grammatical, spelling, and recognition errors present. The file time of this note does not necessarily represent the time of service. Dictated By: Sergey Knapp MD 06/17/25 1121 Signed By: <Electronically signed by Sergey Knapp MD in OV> Critical Care Time Critical Care Time Critical Care Time: No Discharge Plan Discharge Clinical Impression: URI with cough and congestion Patient Disposition: Home Condition: Stable Instructions: Antibiotic Form, Upper Respiratory Infection (ED), Acute Cough (ED) Additional Instructions: Increase fluids especially juices and water [id number] cough and cold medicine of your choice for your symptoms Prescription cough medicine as directed--caution drowsiness and no driving or alcohol Continue Tylenol for any fever pain Zyrtec Claritin or Karla daily Continue your inhaler/nebulizer as directed Steroids as directed--take with food heat to the face 20-30 minutes 4-6 times a day for pain Salt water gargles, throat lozenges or throat sprays as desired Antibiotic as directed--finished the medication If your symptoms persist, change or worsen significantly before you can contact your personal physician then please, without delay, go to the emergency department for further evaluation. Follow-up with PCP in 7-10 days or sooner if needed Patient Language: Irish Prescriptions: New amoxicillin-pot clavulanate 875-125 mg tablet 1 tablet PO Q12H Qty: 20 0RF Rx Instructions: Recommend taking with food and taking probiotic while on this medication prednisone 20 mg tablet 20 mg PO BID Qty: 10 0RF Rx Instructions: Take with food take p.m. dose before 1830 No Action magnesium chloride 70 mg tablet,delayed release (DR/EC) 70 mg PO DAILY calcium carbonate [Antacid Ultra Strength] 400 mg calcium (1,000 mg) tablet,chewable 400 mg PO DAILY mecobalamin (vitamin B12) 1,000 mcg tablet,chewable 1,000 mcg PO DAILY cholecalciferol (vitamin D3) 125 mcg (5,000 unit) capsule 125 mcg PO DAILY (DME) Nebulizer Machine See Rx Instructions .Route .MEDSUPPLY Qty: 1 0RF Rx Instructions: As directed levalbuterol HCl 0.63 mg/3 mL solution for nebulization 0.63 mg inhalation Q8H PRN (Reason: shortness of breath or wheezing) Qty: 72 0RF Rx Instructions: DNExceed 3 doses/24h omeprazole 20 mg capsule,delayed release(DR/EC) 20 mg PO DAILY Eliquis 5 mg tablet 5 mg PO BID Qty: 180 1RF levothyroxine 125 mcg tablet 125 mcg PO DAILY Qty: 90 1RF Rx Instructions: DUE FOR APPOINTMENT IN JULY Follow-up/Referrals: Mukesh Nayak DO [Primary Care Provider, Internal Medicine] Time of Disposition: 11:49 Quality [place] Coma Scale Eyes: Open Verbal: Oriented and Alert Motor: Follows Commands [place] Coma Total Score: 15
== END 2025-06-17 11:54 | disposition home or self-care (01) ==
PROVIDERS: Emergency Provider Registered Nurse; PCP Internal Medicine
DX: J06.9 Acute upper respiratory infection, unspecified (principal); R05.9 Cough, unspecified; J45.909 Unspecified asthma, uncomplicated; Z87.891 Personal history of nicotine dependence; I48.91 Unspecified atrial fibrillation; E03.9 Hypothyroidism, unspecified; K21.9 Gastro-esophageal reflux disease without esophagitis; M19.90 Unspecified osteoarthritis, unspecified site; M81.0 Age-related osteoporosis without current pathological fracture; E66.9 Obesity, unspecified; Z68.39 Body mass index [BMI] 39.0-39.9, adult; Z79.01 Long term (current) use of anticoagulants; Z96.651 Presence of right artificial knee joint
CPT/HCPCS: 71046; 99213; G0463